=== PATIENT | female | born 1955 | race Caucasian/White ===

== ENCOUNTER 2017-12-03 02:04 | Day surgery (SDC) | payer MEDICARE, BC, OTHER ==
[~2017-12-03] VITALS: Ht 170.2 cm; Wt 90.5 kg
[~2017-12-03 02:04] MED LIST: ACET500; ACET500 PO; AMLO10 PO; AMLO5; AMYLIPPRO; AMYLIPPRO PO; ARIP10 PO; ASPI325 PO; ASPI81EC; ASPI81EC PO; ATOR10 PO; Antivert25 MG PO; Aspir 8181 MG PO; B Complete1 EACH PO; CALCAVITDA PO; CALMAGZIN; CEPH500 PO; CETI10; CHOL10002 PO; CHRO200 PO; CINNAMON PLUS1 EACH PO; CITA20 PO; CLEM1.34 PO; CLIN300 PO; CLON1 PO; CONEST1.25; CREON; CYAN100 PO; CYCL10 PO; Cleocin HCl150 MG PO; Cleocin HCl300 MG PO; DIAZ2 PO; Daily Multivit1 EAC2 PO; ERYT.5TO LEFTEYE; EZET10; EZET10-40 PO; FAMO20 PO; FENO145 PO; FENO67; FISH1000 PO; FLEC50 PO; FOLI1; FURO20 PO; FURO40 PO; Ferrous Sulfat324 MG PO; Flecainide Acet50 MG PO; GABA100 PO; GABA300 PO; GLUC500 PO; GLUCHON PO; GLUCOSAMINE &1 EACH PO; GLUCOSAMINE CH1 EAC3 PO; Ginkgo Biloba40 M1 PO; HEART MED; HYDACE10B PO; HYDACE5 PO; Heartburn Relie10 MG PO; Heartburn Relie20 MG PO; IBUHYD; Iron Supplemen325 MG PO; Keflex500 MG PO; L-THEANINE PO; LAMO100 PO; LAMO25 PO; LAMO50 PO; Lutein 15 MG S1 EACH PO; MAGGLU250 PO; MAGNESIUM PO; MAGOXI400 PO; MECL25; MECL25 PO; MELA3; MELA3 PO; MELATIN3 MG PO; MELATONIN PO; METF500 PO; MOTION-TIME25 MG PO; MULVIT; MULVITB&C PO; MULVITMIND PO; NABU750; NABU750 PO; NAPR375 PO; NAPR500 PO; Norco 5-325 Ta1 EACH PO; OLME20; OLME20 PO; OMEP20ER PO; ONDA4ODT MM; OXYACE5T PO; OXYC5 PO; Omeprazole20 M1 PO; PANT40; POLY17UD PO; PROC5 PO; PROP10 PO; PROP120ER PO; Percocet 5-3251 EACH PO; Prednisone20 MG PO; ROPI.25 PO; ROPI1 PO; RXHYDACE PO; RXSULTRIDS PO; SENN187 PO; SERT100; SIMV40 PO; SLEEP PO; SULTRIDS PO; Stool Softener250 MG PO; TRAM50 PO; TRAZ100; TRAZ100 PO; TRAZ150T57 PO; TRIHYD253A; TRIHYD253A PO; TRIHYD253B PO; Ultram50 MG PO; VALS80 PO; VENL150ER PO; VENL75ER PO; VITAMIN B12-FO1 EACH PO; VITAMIN D3 COM1 EACH PO; VYTORIN; XARELTO20 MG PO; ZOLP10 PO; Zithromax250 MG PO; Zofran8 MG PO; Zovirax800 MG PO; [UNRECOGNIZED DRUG - CODE] PO; [UNRECOGNIZED DRUG - CODE] PO; [UNRECOGNIZED DRUG - OTHER] PO; [UNRECOGNIZED DRUG - OTHER] PO
[2017-12-03 07:19] LABS: Anion Gap 9 mmol/L (6-16); Blood Urea Nitrogen 9 mg/dL (8-24); Bun/Creatinine Ratio 13.5 (12.0-20.0); CO2, Blood 26 mmol/L (21-32); Calcium, Blood 8.7 mg/dL (8.5-10.1); Chloride, Blood 101 mmol/L (98-108); Creatinine, Blood 0.67 mg/dL (0.40-1.00); Glomerular Filtration Rate >60 (60-); Glucose, Blood 139 mg/dL (70-99); Potassium, Blood 3.6 mmol/L (3.5-5.5); Sodium, Blood 136 mmol/L (136-145)
[2018-02-17] MEDS ORDERED: VENL150ER PO (19:35)
[2018-02-17] MEDS ORDERED: FURO40 PO (19:35)
[2018-02-17] MEDS ORDERED: Omeprazole20 M1 PO (19:36)
[2018-02-17] MEDS ORDERED: PROP120ER PO (19:36)
[2018-02-17] MEDS ORDERED: OLME20 PO (19:36)
[2018-02-17] MEDS ORDERED: ATOR10 PO (19:37)
[2018-02-17] MEDS ORDERED: Glucosamine Ch1 EAC4 PO (19:37)
[2018-02-17] MEDS ORDERED: METF500C PO (19:37)
[2018-02-17] MEDS ORDERED: Ginkgo Biloba40 M1 PO (19:38)
[2018-02-17] MEDS ORDERED: MECL12.5 PO (19:38)
[2018-02-17] MEDS ORDERED: FAMO20 PO (19:38)
[2018-02-17] MEDS ORDERED: CYCL10 PO (19:38)
[2018-02-17] MEDS ORDERED: ROPI.25 PO (19:39)
[2018-02-17] MEDS ORDERED: TRAM50 PO (19:39)
[2018-02-17] MEDS ORDERED: TRAZ150T57 PO (19:39)
[2018-02-17] MEDS ORDERED: GABA300 PO (19:39)
[2018-02-17] MEDS ORDERED: ELIQUIS5 MG PO (19:40)
[2018-02-18] MEDS ORDERED: Acetaminophen325 M1 PO (12:42)
== END 2017-12-03 11:50 | disposition home or self-care (01) ==
LOC: MHTC 02:04
PROVIDERS: Internal Medicine Cardiovascular Disease
PROC: B2111ZZ Fluoroscopy of Multiple Coronary Arteries using Low Osmolar Contrast (ICD-10-PCS; principal; 2017-12-03)
DX: T82.855A Stenosis of coronary artery stent, initial encounter (principal); I25.119 Atherosclerotic heart disease of native coronary artery with unspecified angina pectoris; E78.5 Hyperlipidemia, unspecified; I10 Essential (primary) hypertension; E11.9 Type 2 diabetes mellitus without complications; J44.9 Chronic obstructive pulmonary disease, unspecified; K29.60 Other gastritis without bleeding; D63.8 Anemia in other chronic diseases classified elsewhere; D50.9 Iron deficiency anemia, unspecified; Z98.0 Intestinal bypass and anastomosis status; Z87.891 Personal history of nicotine dependence; Z98.84 Bariatric surgery status; Z88.5 Allergy status to narcotic agent; Z88.2 Allergy status to sulfonamides; Z88.1 Allergy status to other antibiotic agents; Z79.899 Other long term (current) drug therapy; Z79.84 Long term (current) use of oral hypoglycemic drugs; Z79.82 Long term (current) use of aspirin
CPT/HCPCS: 80048; 82947; 93005; 93010; 93306; 93454; 99152; 99153; C1769; C1894; J1644; J2250; J3010; J7030; Q9967

== ENCOUNTER 2017-12-06 10:59 | Emergency (ER) | payer MEDICARE, BC, OTHER ==
[~2017-12-06] VITALS: Ht 170.2 cm; Wt 90.3 kg
[2017-12-06 12:07] LABS: BASOPHILS ABSOLUTE AUTO 0.02 K/mm3 (0.00-0.23); BASOPHILS PERCENT AUTO 0 % (0-2); EOSINOPHILS ABSOLUTE AUTO 0.17 K/mm3 (0.00-0.68); EOSINOPHILS PERCENT AUTO 3 % (0-6); Hematocrit 35.5 % (33.0-51.0); Hemoglobin 11.4 g/dL (11.5-16.0); IMMATURE GRAN ABSOLUTE AUTO 0.02 K/mm3 (0.00-0.10); IMMATURE GRAN PERCENT AUTO 0 % (0-1); LYMPHOCYTES ABSOLUTE AUTO 1.91 K/mm3 (0.84-5.20); LYMPHOCYTES PERCENT AUTO 32 % (21-46); MONOCYTES ABSOLUTE AUTO 0.78 K/mm3 (0.16-1.47); MONOCYTES PERCENT AUTO 13 % (4-13); Mean Corpuscular HGB 24.5 pg (26.0-34.0); Mean Corpuscular HGB Conc 32.1 g/dL (31.5-36.5); Mean Corpuscular Volume 76 fL (80-100); Mean Platelet Volume 10.2 fL (9.1-12.4); NEUTROPHILS ABSOLUTE AUTO 3.04 K/mm3 (1.96-9.15); NEUTROPHILS PERCENT AUTO 51 % (41-73); Platelet Count 293 K/mm3 (150-400); RDW Coefficient Variation 14.5 % (11.7-14.2); RDW Standard Deviation 39.8 fL (35.1-46.3); Red Blood Cell Count 4.65 M/mm3 (3.80-5.20); White Blood Cell Count 5.94 K/mm3 (4.00-11.30)
[2017-12-06 12:15] LABS: Troponin I <0.015 ng/mL (0.000-0.040)
[2017-12-06 12:17] LABS: Alanine Aminotransfer (ALT/SGP 36 U/L (12-78); Albumin, Blood 3.8 g/dL (3.4-5.0); Albumin/Globulin Ratio 1.2 (0.8-1.8); Alk Phos 68 U/L (50-136); Anion Gap 11 mmol/L (6-16); Aspartate Aminotrans (AST/SGOT 33 U/L (12-37); Bilirubin, Total 0.4 mg/dL (0.1-1.0); Blood Urea Nitrogen 12 mg/dL (8-24); CO2, Blood 24 mmol/L (21-32); Calcium, Blood 8.9 mg/dL (8.5-10.1); Chloride, Blood 97 mmol/L (98-108); Creatinine, Blood 0.86 mg/dL (0.40-1.00); Globulin, Blood 3.3 g/dL (2.2-4.0); Glomerular Filtration Rate >60 (60-); Glucose, Blood 160 mg/dL (70-99); Sodium, Blood 132 mmol/L (136-145); Total Protein, Blood 7.1 g/dL (6.4-8.2)
[2018-02-17] MEDS ORDERED: VENL150ER PO (19:35)
[2018-02-17] MEDS ORDERED: FURO40 PO (19:35)
[2018-02-17] MEDS ORDERED: OLME20 PO (19:36)
[2018-02-17] MEDS ORDERED: PROP120ER PO (19:36)
[2018-02-17] MEDS ORDERED: Omeprazole20 M1 PO (19:36)
[2018-02-17] MEDS ORDERED: ATOR10 PO (19:37)
[2018-02-17] MEDS ORDERED: METF500C PO (19:37)
[2018-02-17] MEDS ORDERED: Glucosamine Ch1 EAC4 PO (19:37)
[2018-02-17] MEDS ORDERED: FAMO20 PO (19:38)
[2018-02-17] MEDS ORDERED: Ginkgo Biloba40 M1 PO (19:38)
[2018-02-17] MEDS ORDERED: CYCL10 PO (19:38)
[2018-02-17] MEDS ORDERED: MECL12.5 PO (19:38)
[2018-02-17] MEDS ORDERED: GABA300 PO (19:39)
[2018-02-17] MEDS ORDERED: TRAZ150T57 PO (19:39)
[2018-02-17] MEDS ORDERED: ROPI.25 PO (19:39)
[2018-02-17] MEDS ORDERED: TRAM50 PO (19:39)
[2018-02-17] MEDS ORDERED: ELIQUIS5 MG PO (19:40)
[2018-02-18] MEDS ORDERED: Acetaminophen325 M1 PO (12:42)
== END 2017-12-06 13:25 | disposition short-term general hospital (02) ==
LOC: ER 10:59
PROVIDERS: Emergency Medicine
DX: I20.0 Unstable angina (principal); I10 Essential (primary) hypertension; I48.91 Unspecified atrial fibrillation; Z87.891 Personal history of nicotine dependence; Z88.0 Allergy status to penicillin; Z88.5 Allergy status to narcotic agent; Z88.1 Allergy status to other antibiotic agents; Z88.2 Allergy status to sulfonamides; Z79.899 Other long term (current) drug therapy; Z79.82 Long term (current) use of aspirin; Z79.84 Long term (current) use of oral hypoglycemic drugs; Z79.891 Long term (current) use of opiate analgesic
CPT/HCPCS: 36415; 80053; 84484; 85025; 93005; 93010; 99285

== ENCOUNTER → 2018-12-22 | Outpatient (CLI) | payer MEDICARE, BC, OTHER ==
[~2018-12-22] MED LIST changes: +ACETAMINOPHEN500 MG PO; +ALPHA LIPOIC AC50 MG PO; +Acetaminophen325 M1 PO; +Benicar40 MG PO; +CHLO4 PO; +Chromium Pico200 MCG PO; +Cinnamon500 MG PO; +Colace250 MG PO; +ELIQUIS5 MG PO; +FURO80 PO; +GABA600 PO; +Glucophage1000 MG PO; +Glucosamine &1 EACH PO; +Glucosamine Ch1 EAC4 PO; +Inderal 20 mg T20 MG PO; +Isosorbide Mono30 MG PO; +MECL12.5 PO; +METF500C PO; +MOTION RELIEF25 MG PO; +PANT40 PO; +Ropinirole HCl0.5 MG PO; +SUCR1 PO; +VITAMIN B122500 MCG PO
[2018-12-23 13:59] LABS: Adenovirus F 40/41 Not Detected (NOT DETECT); Astrovirus Not Detected (NOT DETECT); Campylobacter Sp Not Detected (NOT DETECT); Cryptosporidium Not Detected (NOT DETECT); Cyclospora Cayetanensis Not Detected (NOT DETECT); E. Coli O157 Not Detected (NOT DETECT); Entamoeba Histolytica Not Detected (NOT DETECT); Enteroaggregative E. coli-EAEC Not Detected (NOT DETECT); Enteropathogenic E. coli-EPEC Not Detected (NOT DETECT); Enterotoxigenic E. coli-ETEC Not Detected (NOT DETECT); Giardia Lamblia Not Detected (NOT DETECT); Norovirus GI/GII Not Detected (NOT DETECT); Plesiomonas Shigelloides Not Detected (NOT DETECT); Rotavirus A Not Detected (NOT DETECT); Salmonella Sp Not Detected (NOT DETECT); Sapovirus Not Detected (NOT DETECT); Shiga Toxin-prod E. coli-STEC Not Detected (NOT DETECT); Shigella/Enteroin E. coli-EIEC Not Detected (NOT DETECT); Vibrio Cholerae Not Detected (NOT DETECT); Vibrio Sp Not Detected (NOT DETECT); Yersinia Enterocolitica Not Detected (NOT DETECT)
== END | disposition home or self-care (01) ==
LOC: LAB EV 08:15
PROVIDERS: Internal Medicine Gastroenterology
DX: R10.9 Unspecified abdominal pain (principal); R19.7 Diarrhea, unspecified
CPT/HCPCS: 87507

== ENCOUNTER 2019-01-01 11:24 | Day surgery (SDC) | payer MEDICARE, BC, OTHER ==
[~2019-01-01] VITALS: Ht 167.6 cm; Wt 87.4 kg
== END 2019-01-01 13:26 | disposition home or self-care (01) ==
LOC: ORSCSDS 11:24
PROVIDERS: Internal Medicine Gastroenterology
PROC: 0DBH8ZX Excision of Cecum, Via Natural or Artificial Opening Endoscopic, Diagnostic (ICD-10-PCS; principal; 2019-01-01 12:45)
PROC: 0DBM8ZX Excision of Descending Colon, Via Natural or Artificial Opening Endoscopic, Diagnostic (ICD-10-PCS; principal; 2019-01-01 12:45)
PROC: 0DBE8ZX Excision of Large Intestine, Via Natural or Artificial Opening Endoscopic, Diagnostic (ICD-10-PCS; principal; 2019-01-01 12:45)
PROC: 0DBL8ZX Excision of Transverse Colon, Via Natural or Artificial Opening Endoscopic, Diagnostic (ICD-10-PCS; principal; 2019-01-01 12:45)
PROC: 0DB68ZX Excision of Stomach, Via Natural or Artificial Opening Endoscopic, Diagnostic (ICD-10-PCS; principal; 2019-01-01 12:45)
DX: R19.7 Diarrhea, unspecified (principal); R10.9 Unspecified abdominal pain; D12.4 Benign neoplasm of descending colon; D12.0 Benign neoplasm of cecum; D12.3 Benign neoplasm of transverse colon; K29.70 Gastritis, unspecified, without bleeding; I10 Essential (primary) hypertension; E11.9 Type 2 diabetes mellitus without complications; Z87.891 Personal history of nicotine dependence; Z79.899 Other long term (current) drug therapy; Z79.82 Long term (current) use of aspirin
CPT/HCPCS: 82947; 88305; 88342; J7120

== ENCOUNTER 2019-07-28 13:23 | Emergency (ER) | payer MEDICARE, BC, OTHER ==
[~2019-07-28] VITALS: Ht 160 cm; Wt 90.7 kg
[2019-07-28 14:09] LABS: BASOPHILS ABSOLUTE AUTO 0.01 K/mm3 (0.00-0.23); BASOPHILS PERCENT AUTO 0 % (0-2); EOSINOPHILS ABSOLUTE AUTO 0.13 K/mm3 (0.00-0.68); EOSINOPHILS PERCENT AUTO 2 % (0-6); Hematocrit 39.9 % (33.0-51.0); Hemoglobin 12.5 g/dL (11.5-16.0); IMMATURE GRAN ABSOLUTE AUTO 0.02 K/mm3 (0.00-0.10); IMMATURE GRAN PERCENT AUTO 0 % (0-1); LYMPHOCYTES ABSOLUTE AUTO 1.57 K/mm3 (0.84-5.20); LYMPHOCYTES PERCENT AUTO 24 % (21-46); MONOCYTES ABSOLUTE AUTO 0.55 K/mm3 (0.16-1.47); MONOCYTES PERCENT AUTO 8 % (4-13); Mean Corpuscular HGB 25.2 pg (26.0-34.0); Mean Corpuscular HGB Conc 31.3 g/dL (31.5-36.5); Mean Corpuscular Volume 80 fL (80-100); Mean Platelet Volume 10.1 fL (9.1-12.4); NEUTROPHILS ABSOLUTE AUTO 4.41 K/mm3 (1.96-9.15); NEUTROPHILS PERCENT AUTO 66 % (41-73); Platelet Count 282 K/mm3 (150-400); RDW Coefficient Variation 14.3 % (11.7-14.2); RDW Standard Deviation 41.1 fL (35.1-46.3); Red Blood Cell Count 4.96 M/mm3 (3.80-5.20); White Blood Cell Count 6.69 K/mm3 (4.00-11.30)
[2019-07-28 14:40] LABS: Alanine Aminotransfer (ALT/SGP 48 U/L (12-78); Albumin/Globulin Ratio 1.1 (0.8-1.8); Alk Phos 59 U/L (50-136); Anion Gap 10 mmol/L (6-16); Aspartate Aminotrans (AST/SGOT 54 U/L (12-37); Bilirubin, Total 0.5 mg/dL (0.1-1.0); Blood Urea Nitrogen 7 mg/dL (8-24); Bun/Creatinine Ratio 12.1 (12.0-20.0); CO2, Blood 23 mmol/L (21-32); Chloride, Blood 99 mmol/L (98-108); Creatinine, Blood 0.58 mg/dL (0.40-1.00); Globulin, Blood 3.7 g/dL (2.2-4.0); Glomerular Filtration Rate >60 (60-); Glucose, Blood 275 mg/dL (70-99); Potassium, Blood 3.2 mmol/L (3.5-5.5); Sodium, Blood 132 mmol/L (136-145); Total Protein, Blood 7.7 g/dL (6.4-8.2); Troponin I <0.015 ng/mL (0.000-0.040)
[2019-07-28] MEDS ORDERED: TRAM50 PO (18:30)
[2019-07-28] MEDS ORDERED: Aspir 8181 MG PO (18:31)
[2019-07-28] MEDS ORDERED: ASCO500 PO (18:33)
[2019-07-28] MEDS ORDERED: Pepcid20 MG PO (18:55)
== END 2019-07-28 19:06 | disposition home or self-care (01) ==
LOC: ER 13:23
PROVIDERS: Physician Assistant
DX: R07.9 Chest pain, unspecified (principal); I25.10 Atherosclerotic heart disease of native coronary artery without angina pectoris; I10 Essential (primary) hypertension; I48.91 Unspecified atrial fibrillation; Z88.2 Allergy status to sulfonamides; Z88.1 Allergy status to other antibiotic agents; Z88.0 Allergy status to penicillin; Z88.5 Allergy status to narcotic agent; Z88.8 Allergy status to other drugs, medicaments and biological substances; Z79.899 Other long term (current) drug therapy; Z79.82 Long term (current) use of aspirin; Z79.84 Long term (current) use of oral hypoglycemic drugs; Z87.891 Personal history of nicotine dependence
CPT/HCPCS: 36415; 71046; 80053; 84484; 85025; 93005; 93010; 99285-25

== ENCOUNTER → 2019-09-07 | Outpatient (CLI) | payer MEDICARE, BC, OTHER ==
[~2019-09-07] MED LIST changes: +ASCO500 PO; +Pepcid20 MG PO
[2019-09-10 14:23] LABS: Stool Occult Bld Immuno 1 Positive (NEGATIVE)
== END | disposition home or self-care (01) ==
LOC: LAB EV 13:00
PROVIDERS: Nurse Practitioner Family
DX: R10.30 Lower abdominal pain, unspecified (principal); I10 Essential (primary) hypertension
CPT/HCPCS: 82274

== ENCOUNTER 2019-10-10 10:33 | Day surgery (SDC) | payer MEDICARE, BC, OTHER ==
[~2019-10-10] VITALS: Ht 167.6 cm; Wt 88.9 kg
[~2019-10-10 10:33] MED LIST changes: +ATOR20 PO; +Isosorbide Mono60 MG PO; +LOSA50 PO; +POTCHL10ER PO
== END 2019-10-10 13:27 | disposition home or self-care (01) ==
LOC: ORSCSDS 10:33
PROVIDERS: Internal Medicine Gastroenterology
PROC: 0DB88ZX Excision of Small Intestine, Via Natural or Artificial Opening Endoscopic, Diagnostic (ICD-10-PCS; principal; 2019-10-10 12:45)
DX: R10.13 Epigastric pain (principal); K29.70 Gastritis, unspecified, without bleeding; K21.9 Gastro-esophageal reflux disease without esophagitis; K92.1 Melena; I10 Essential (primary) hypertension; E11.9 Type 2 diabetes mellitus without complications; I48.91 Unspecified atrial fibrillation; Z79.01 Long term (current) use of anticoagulants; Z85.09 Personal history of malignant neoplasm of other digestive organs; Z87.891 Personal history of nicotine dependence; Z79.899 Other long term (current) drug therapy; Z79.84 Long term (current) use of oral hypoglycemic drugs
CPT/HCPCS: 82947; 88305; J2704; J7120

== ENCOUNTER 2020-03-04 12:54 | Emergency (ER) | payer MEDICARE, BC, OTHER ==
[~2020-03-04] VITALS: Ht 167.6 cm; Wt 88.5 kg
[2020-03-04 13:56] LABS: BASOPHILS ABSOLUTE AUTO 0.01 K/mm3 (0.00-0.23); BASOPHILS PERCENT AUTO 0 % (0-2); EOSINOPHILS ABSOLUTE AUTO 0.07 K/mm3 (0.00-0.68); EOSINOPHILS PERCENT AUTO 1 % (0-6); Hematocrit 38.7 % (33.0-51.0); Hemoglobin 11.3 g/dL (11.5-16.0); IMMATURE GRAN ABSOLUTE AUTO 0.03 K/mm3 (0.00-0.10); IMMATURE GRAN PERCENT AUTO 0 % (0-1); LYMPHOCYTES ABSOLUTE AUTO 1.29 K/mm3 (0.84-5.20); LYMPHOCYTES PERCENT AUTO 17 % (21-46); MONOCYTES ABSOLUTE AUTO 0.57 K/mm3 (0.16-1.47); MONOCYTES PERCENT AUTO 8 % (4-13); Mean Corpuscular HGB 21.8 pg (26.0-34.0); Mean Corpuscular HGB Conc 29.2 g/dL (31.5-36.5); Mean Corpuscular Volume 75 fL (80-100); Mean Platelet Volume 10.2 fL (9.1-12.4); NEUTROPHILS ABSOLUTE AUTO 5.65 K/mm3 (1.96-9.15); NEUTROPHILS PERCENT AUTO 74 % (41-73); NRBC ABSOLUTE 0.03 K/mm3 (0.00-0.02); NRBC Auto 0.4 /100 WBC (0.0-0.2); Platelet Count 307 K/mm3 (150-400); RDW Coefficient Variation 15.6 % (11.7-14.2); RDW Standard Deviation 41.9 fL (35.1-46.3); Red Blood Cell Count 5.18 M/mm3 (3.80-5.20); White Blood Cell Count 7.62 K/mm3 (4.00-11.30)
[2020-03-04 14:22] LABS: Alanine Aminotransfer (ALT/SGP 32 U/L (12-78); Albumin/Globulin Ratio 1.1 (0.8-1.8); Alk Phos 58 U/L (50-136); Anion Gap 9 mmol/L (6-16); Aspartate Aminotrans (AST/SGOT 33 U/L (12-37); Bilirubin, Total 0.4 mg/dL (0.1-1.0); Blood Urea Nitrogen 8 mg/dL (8-24); Bun/Creatinine Ratio 12.8 (12.0-20.0); CO2, Blood 26 mmol/L (21-32); Chloride, Blood 101 mmol/L (98-108); Creatinine, Blood 0.63 mg/dL (0.40-1.00); Globulin, Blood 3.7 g/dL (2.2-4.0); Glomerular Filtration Rate >60 (60-); Glucose, Blood 205 mg/dL (70-99); Sodium, Blood 136 mmol/L (136-145); Total Protein, Blood 7.7 g/dL (6.4-8.2); Troponin I <0.015 ng/mL (0.000-0.040)
== END 2020-03-04 14:55 | disposition home or self-care (01) ==
LOC: ER 12:54
PROVIDERS: Physician Assistant
DX: S00.03XA Contusion of scalp, initial encounter (principal); I10 Essential (primary) hypertension; I48.91 Unspecified atrial fibrillation; E11.9 Type 2 diabetes mellitus without complications; Z88.2 Allergy status to sulfonamides; Z88.1 Allergy status to other antibiotic agents; Z88.0 Allergy status to penicillin; Z88.5 Allergy status to narcotic agent; Z88.8 Allergy status to other drugs, medicaments and biological substances; Z79.899 Other long term (current) drug therapy; Z79.84 Long term (current) use of oral hypoglycemic drugs; Z79.82 Long term (current) use of aspirin; Z87.891 Personal history of nicotine dependence; W22.8XXA Striking against or struck by other objects, initial encounter
CPT/HCPCS: 36415; 70450; 72125; 80053; 84484; 85025; 93005; 93010; 99284-25; L0160

== ENCOUNTER → 2020-03-29 | Outpatient (CLI) | payer MEDICARE, BC, OTHER ==
[2020-03-29 09:57] LABS: BASOPHILS ABSOLUTE AUTO 0.01 K/mm3 (0.00-0.23); BASOPHILS PERCENT AUTO 0 % (0-2); EOSINOPHILS ABSOLUTE AUTO 0.07 K/mm3 (0.00-0.68); EOSINOPHILS PERCENT AUTO 2 % (0-6); Hematocrit 33.6 % (33.0-51.0); Hemoglobin 10.3 g/dL (11.5-16.0); IMMATURE GRAN ABSOLUTE AUTO 0.01 K/mm3 (0.00-0.10); IMMATURE GRAN PERCENT AUTO 0 % (0-1); LYMPHOCYTES ABSOLUTE AUTO 1.19 K/mm3 (0.84-5.20); LYMPHOCYTES PERCENT AUTO 26 % (21-46); MONOCYTES ABSOLUTE AUTO 0.34 K/mm3 (0.16-1.47); MONOCYTES PERCENT AUTO 7 % (4-13); Mean Corpuscular HGB 22.3 pg (26.0-34.0); Mean Corpuscular HGB Conc 30.7 g/dL (31.5-36.5); Mean Corpuscular Volume 73 fL (80-100); Mean Platelet Volume 9.8 fL (9.1-12.4); NEUTROPHILS ABSOLUTE AUTO 3.04 K/mm3 (1.96-9.15); NEUTROPHILS PERCENT AUTO 65 % (41-73); Platelet Count 256 K/mm3 (150-400); RDW Coefficient Variation 16.7 % (11.7-14.2); RDW Standard Deviation 43.2 fL (35.1-46.3); Red Blood Cell Count 4.61 M/mm3 (3.80-5.20); White Blood Cell Count 4.66 K/mm3 (4.00-11.30)
[2020-03-29 10:09] LABS: Alanine Aminotransfer (ALT/SGP 30 U/L (12-78); Albumin, Blood 3.9 g/dL (3.4-5.0); Albumin/Globulin Ratio 1.3 (0.8-1.8); Alk Phos 60 U/L (40-126); Anion Gap 11 mmol/L (6-16); Aspartate Aminotrans (AST/SGOT 30 U/L (12-37); Bilirubin, Total 0.4 mg/dL (0.1-1.0); Blood Urea Nitrogen 10 mg/dL (8-24); CO2, Blood 29 mmol/L (21-32); Calcium, Blood 8.9 mg/dL (8.5-10.1); Chloride, Blood 101 mmol/L (98-108); Creatinine, Blood 0.83 mg/dL (0.40-1.00); Globulin, Blood 3.1 g/dL (2.2-4.0); Glomerular Filtration Rate >60 (60-); Glucose, Blood 157 mg/dL (70-99); Potassium, Blood 4.2 mmol/L (3.5-5.5); Sodium, Blood 141 mmol/L (136-145)
[2020-03-29 10:10] LABS: Troponin I <0.017 ng/mL (0.000-0.040)
== END ==
LOC: LAB EV 09:52 → LAB SHORT 09:52
PROVIDERS: Family Medicine
DX: R07.9 Chest pain, unspecified (principal)
CPT/HCPCS: 80053; 84484; 85025; 85379

== ENCOUNTER → 2020-09-20 | Outpatient (CLI) | payer MEDICARE, BC, OTHER ==
[2020-09-22 11:16] LABS: Stool Occult Bld Immuno 1 Negative (NEGATIVE)
== END | disposition home or self-care (01) ==
LOC: LAB SHORT 14:20 → LAB 14:20
PROVIDERS: Internal Medicine
DX: D50.9 Iron deficiency anemia, unspecified (principal)
CPT/HCPCS: 82274

== ENCOUNTER → 2021-06-03 | Outpatient (CLI) | payer MEDICARE, BC, OTHER ==
[2021-06-03 11:03] LABS: BASOPHILS ABSOLUTE AUTO 0.02 K/mm3 (0.00-0.23); BASOPHILS PERCENT AUTO 0 % (0-2); EOSINOPHILS ABSOLUTE AUTO 0.13 K/mm3 (0.00-0.68); EOSINOPHILS PERCENT AUTO 2 % (0-6); Hematocrit 40.2 % (33.0-51.0); Hemoglobin 13.6 g/dL (11.5-16.0); IMMATURE GRAN ABSOLUTE AUTO 0.01 K/mm3 (0.00-0.10); IMMATURE GRAN PERCENT AUTO 0 % (0-1); LYMPHOCYTES ABSOLUTE AUTO 1.86 K/mm3 (0.84-5.20); LYMPHOCYTES PERCENT AUTO 33 % (21-46); MONOCYTES ABSOLUTE AUTO 0.53 K/mm3 (0.16-1.47); MONOCYTES PERCENT AUTO 9 % (4-13); Mean Corpuscular HGB 28.6 pg (26.0-34.0); Mean Corpuscular HGB Conc 33.8 g/dL (31.5-36.5); Mean Corpuscular Volume 85 fL (80-100); Mean Platelet Volume 9.7 fL (9.1-12.4); NEUTROPHILS ABSOLUTE AUTO 3.12 K/mm3 (1.96-9.15); NEUTROPHILS PERCENT AUTO 55 % (41-73); Platelet Count 263 K/mm3 (150-400); RDW Coefficient Variation 12.9 % (11.7-14.2); RDW Standard Deviation 39.8 fL (35.1-46.3); Red Blood Cell Count 4.75 M/mm3 (3.80-5.20); White Blood Cell Count 5.67 K/mm3 (4.00-11.30)
[2021-06-03 11:49] LABS: Alanine Aminotransfer (ALT/SGP 42 U/L (12-78); Albumin, Blood 3.9 g/dL (3.4-5.0); Albumin/Globulin Ratio 1.1 (0.8-1.8); Alk Phos 44 U/L (50-136); Anion Gap 6 mmol/L (6-16); Aspartate Aminotrans (AST/SGOT 34 U/L (12-37); Bilirubin, Total 0.8 mg/dL (0.1-1.0); Blood Urea Nitrogen 7 mg/dL (8-24); Bun/Creatinine Ratio 11.3 (12.0-20.0); CO2, Blood 29 mmol/L (21-32); Calcium, Blood 9.4 mg/dL (8.5-10.1); Chloride, Blood 98 mmol/L (98-108); Creatinine, Blood 0.62 mg/dL (0.40-1.00); Globulin, Blood 3.7 g/dL (2.2-4.0); Glomerular Filtration Rate >60 (60-); Glucose, Blood 128 mg/dL (70-99); Potassium, Blood 4.3 mmol/L (3.5-5.5); Sodium, Blood 133 mmol/L (136-145); Total Protein, Blood 7.6 g/dL (6.4-8.2)
== END | disposition home or self-care (01) ==
LOC: LAB 10:58 → LAB SHORT 10:58
PROVIDERS: Physician Assistant
DX: R53.83 Other fatigue (principal); Z91.89 Other specified personal risk factors, not elsewhere classified
CPT/HCPCS: 80053; 84443; 85025

== ENCOUNTER 2022-03-10 10:22 | Inpatient (IN) | payer MEDICARE, BC, OTHER ==
[~2022-03-10] VITALS: Ht 167.6 cm; Wt 87.2 kg
[~2022-03-10 10:22] MED LIST changes: -Glucophage1000 MG PO
[2022-03-10 11:23] LABS: Source, Urine Clean Catch
[2022-03-10 11:25] LABS: BASOPHILS ABSOLUTE AUTO 0.03 K/mm3 (0.00-0.23); BASOPHILS PERCENT AUTO 0 % (0-2); EOSINOPHILS ABSOLUTE AUTO 0.17 K/mm3 (0.00-0.68); EOSINOPHILS PERCENT AUTO 2 % (0-6); Hematocrit 40.4 % (33.0-51.0); Hemoglobin 13.6 g/dL (11.5-16.0); IMMATURE GRAN ABSOLUTE AUTO 0.02 K/mm3 (0.00-0.10); IMMATURE GRAN PERCENT AUTO 0 % (0-1); LYMPHOCYTES ABSOLUTE AUTO 1.34 K/mm3 (0.84-5.20); LYMPHOCYTES PERCENT AUTO 18 % (21-46); MONOCYTES ABSOLUTE AUTO 0.48 K/mm3 (0.16-1.47); MONOCYTES PERCENT AUTO 7 % (4-13); Mean Corpuscular HGB 29.1 pg (26.0-34.0); Mean Corpuscular HGB Conc 33.7 g/dL (31.5-36.5); Mean Corpuscular Volume 87 fL (80-100); Mean Platelet Volume 10.1 fL (9.1-12.4); NEUTROPHILS ABSOLUTE AUTO 5.26 K/mm3 (1.96-9.15); NEUTROPHILS PERCENT AUTO 72 % (41-73); Platelet Count 280 K/mm3 (150-400); RDW Coefficient Variation 12.3 % (11.7-14.2); RDW Standard Deviation 38.8 fL (35.1-46.3); Red Blood Cell Count 4.67 M/mm3 (3.80-5.20)
[2022-03-10 11:47] LABS: Albumin, Blood 3.7 g/dL (3.4-5.0); Albumin/Globulin Ratio 1.1 (0.8-1.8); Bilirubin, Total 0.6 mg/dL (0.1-1.0); Bun/Creatinine Ratio 11.8 (12.0-20.0); Calcium, Blood 9.5 mg/dL (8.5-10.1); Creatinine, Blood 0.68 mg/dL (0.40-1.00); Globulin, Blood 3.5 g/dL (2.2-4.0); Potassium, Blood 3.8 mmol/L (3.5-5.5); Total Protein, Blood 7.2 g/dL (6.4-8.2)
[2022-03-10 11:48] LABS: Appearance, Urine Clear (Clear); Bilirubin, Urine Neg (Neg); Blood, Urine 1+ (Neg); Color, Urine Yellow (P-Yellow); Glucose Qualitative, Urine Neg (Neg); Ketones, Urine Neg (Neg); Leukocyte Esterase, Urine 1+ (Neg); Nitrite, Urine Neg (Neg); Protein, Urine Neg (Neg); Specific Gravity, Urine 1.015 (1.003-1.022); Urobilinogen, Urine NORM (Normal)
[2022-03-10 12:02] LABS: Red Blood Cells, Urine 0-2 /hpf (0-2); Squamous Epithelial Cells Few /hpf (Few)
[2022-03-10 12:03] LABS: Bacteria Rare /hpf
[2022-03-10 12:04] LABS: Hyaline Casts 0-2 /lpf (0-2)
--- NOTE | 2022-03-10 21:32 | NUR ---
WITH ASSESSMENT C/O CHEST PRESSURE.WHEN QUESTIONED, PT REPORTS SHE "ALWAYS" HAS SOME LEVEL OF CP AND HAS HAD SINCE MULTI VESSEL ARTERY BYPASS GRADTING IN 2018. STATES CHEST PRESSURE HAS ACTUALLY WORSENED SINCE HER HEART SURGARY AND AT THIS TIME IS INCREASING BEYOND WHAT SHE CONSIDERS HER BASELINE.PT REPORTS ALLERGY TO NITRO AND DOES NOT TAKE AT HOME.PT VERB SHE HAS REPORTED THIS TO HER CARDIOLOGISTS AND PCP.PT REPORTS SHE HAS HX OF AFIB WITH THE ONLY BLOOD THINNER SHE TAKES BABY ASA.HOWEVER, PT HOME MED LIST NOTES PT ON XARELTO. WHEN ASKED FOR CONFIRMATION ON HER MEDS, PT IS UNABLE TO CONFIRM AND STATES HER FAMILY WILL NOT BE AVAILABLE UNTIL AM TO BRING IN HER MEDS. PT USES [facility] AND IF THEY ARE OPEN ON SUNDAY, WE WILL ALSO BE REQUESTING A LIST FORM THEM. PT AGREES TO THIS.PT HAS COZAAR WHICH IS ORDERED PER ADMIT AND INDERAL ALSO ORDERED PER ADMIT.PT IS NOTED BRADYCARDIC PT HYPERTENSIVE. PT UNCLEAR IF HX CHF ALTHOUGH [facility] NOTED ON HOME MED LIST. I CALLED DR CHINCHILLA AND ADVISED OF C/O CHEST PRESSURE WITH STATEMENT OF ALWAYS AT HOME, BUT WORSE AT PRESENT DISCUSSED MEDS PER HOME LIST AND MEDS ORDERED PER ADMIT.DISCUSSED CURRENT VS.COZAAR WAS OKD TO GIVE-INDERAL ON HOLD.DR CHINCHILLA ORDERED TROP,EKG,TELE.
--- NOTE | 2022-03-10 22:35 | NUR ---
EKG WAS COMPLETE AT 2213.SINUS REBA WITH RBBB PER AUTO READ,TELE WAS PLACED AT THIS TIME AFTER EKG SINUS REBA.PT REPORTED WHILE EKG WAS BEING DONE, SHE HAD A BRIEF, SHARP, SHOOTING PAIN TRAVEL TO HER L JAW.TROP CAME BACK CRITICAL HIGH AT 168.I NOTIFIED DR CHINCHILLA OF TROP AND OF BRIEF PAIN TO JAW,DISCUSSED EKGF RESULT.HEPARIN GTT ORDERS BEING ORDERED AND REPEAT TROP 2 HR POST FIRST TROP DRAW.
[2022-03-10 23:42] LABS: Anti-Xa UFH, PHA Monitoring <0.10 IU/mL; Prothrombin Time Results 10.5 Sec (9.7-11.5)
--- NOTE | 2022-03-11 01:27 | NUR ---
HEPARIN GTT STARTED AT 0025 PER PHARM MANAGEMENT ORDERS.WITH COMFIRMATION PER Khadijah GILLIS RN.SECOND TROP ALSO CRITICAL AND SLIGHTLY HIGHER @[address] MASON.DISCUSSED CURRENT HEPARIN ORDERS.PT REPORTING CHEST PRESSURE EASING BACK TO WHAT SHE CONSIDERS HER MILD BASELINE.PT HAS BEEN MADE AWARE OF LABS AND WHY HEPARIN GTT WITH CARDIAC CONCERNS.PT ASKING ABOUT SURGERY TOMORROW? DISCUSSED CARDIAC RISKS TAKING PRECEDENT AT THIS TIME,DOES NOT APPEAR ANY PROCEDURE WILL OCCUR REGARDLESS FIRST AM IF ANY TOMORROW DUE TO NEED FOR HEP GTT AND CARDIAC CONCERNS. HOWEVER,PLAN FOR PT TO BE SEEN FOR SURG CX STILL TO DETERMINE PLAN OF ACTION REGARDING ABD WALL ABSCESS.
[2022-03-11 06:33] LABS: BASOPHILS ABSOLUTE AUTO 0.02 K/mm3 (0.00-0.23); BASOPHILS PERCENT AUTO 0 % (0-2); EOSINOPHILS ABSOLUTE AUTO 0.18 K/mm3 (0.00-0.68); EOSINOPHILS PERCENT AUTO 3 % (0-6); Hematocrit 34.5 % (33.0-51.0); Hemoglobin 11.8 g/dL (11.5-16.0); IMMATURE GRAN ABSOLUTE AUTO 0.02 K/mm3 (0.00-0.10); IMMATURE GRAN PERCENT AUTO 0 % (0-1); LYMPHOCYTES ABSOLUTE AUTO 1.39 K/mm3 (0.84-5.20); LYMPHOCYTES PERCENT AUTO 22 % (21-46); MONOCYTES ABSOLUTE AUTO 0.46 K/mm3 (0.16-1.47); MONOCYTES PERCENT AUTO 7 % (4-13); Mean Corpuscular HGB 28.9 pg (26.0-34.0); Mean Corpuscular HGB Conc 34.2 g/dL (31.5-36.5); Mean Corpuscular Volume 85 fL (80-100); Mean Platelet Volume 9.7 fL (9.1-12.4); NEUTROPHILS ABSOLUTE AUTO 4.13 K/mm3 (1.96-9.15); NEUTROPHILS PERCENT AUTO 67 % (41-73); Platelet Count 221 K/mm3 (150-400); RDW Coefficient Variation 11.9 % (11.7-14.2); RDW Standard Deviation 36.2 fL (35.1-46.3); Red Blood Cell Count 4.08 M/mm3 (3.80-5.20)
[2022-03-11 06:51] LABS: Bilirubin, Total 0.6 mg/dL (0.1-1.0); Calcium, Blood 8.4 mg/dL (8.5-10.1); Creatinine, Blood 0.61 mg/dL (0.40-1.00); Globulin, Blood 2.9 g/dL (2.2-4.0); Potassium, Blood 3.7 mmol/L (3.5-5.5); Total Protein, Blood 5.9 g/dL (6.4-8.2)
--- NOTE | 2022-03-11 07:44 | NUR ---
SUMMARY PT HAVING MILD UPPER LIP SWELLING AND INTITIALLY STATED IT WAS RELATED TO HER CHAPPED LIPS, NOW WITH FURTHER DISCUSSION ADMITS TO FEELING IT SWELLING.I CALLED DR CABA,AND HE DIRECTED ME TO CALL DR WASHBURN. CALLED OUT TO DR WASHBURN. ORDERS RECEIVED.
--- NOTE | 2022-03-11 08:09 | NUR ---
CX CALLED TO DR ROMERO,CALL OUT TO DR PARHAM TO NOTIFY OF N STEMI.
--- NOTE | 2022-03-11 08:11 | NUR ---
DR PARHAM RETURNED CALL AND WAS ADVISED OF N STEMI
[2022-03-11 10:25] LABS: SARS-Cov-2 (COVID-19) PCR, MMC NEGATIVE (NEGATIVE)
--- NOTE | 2022-03-11 10:44 | NUR ---
HEPARIN STOPPED AT [address] DR WASHBURN AWARE.
--- NOTE | 2022-03-11 11:00 | NUR ---
HEPARIN RESTARTED PER DR ROMERO, PT NOT GOING TO O.R. FOR ABD SURGERY TODAY WITH DR PARHAM, BUT WILL HAVE STRESS TEST 03/12/22 AT 0800.
[2022-03-11] MEDS ORDERED: IRON18 MG PO (16:49)
--- NOTE | 2022-03-11 16:55 | NUR ---
SHIFT SUMMARY PT A&OX3/FORGETFUL, CBGS CNI, VSS/RA, GUY PO, VOIDING WELL, AMB INDEPENDENTLY TO BRP, UP TO CHAIR FOR MEALS. PLAN FOR NPO MIDNIGHT/WATER OK FOR STRESS TEST IN AM. DAUGHTER AT BEDSIDE. WILL REPORT TO ONCOMING NOC RN.
--- NOTE | 2022-03-12 03:10 | NUR ---
PT WITH H/A REPORTED CHRONIC.HOWEVER, AT THIS TIME PT REPORTS CURRENT HEADACHE FEELS "DIFFERENT" PT STATES H/A FEELS MORE FRONTAL THAN USUAL.WHEN I QUESTION FURTHER, PT REPORTS R FACIAL "NUMBNESS.ALSO REPORTS R EYE FIELD OF VISION GETTING SMALLER.KRISTA.PT HAS HAD UPPER LIP SWELLING SINCE THIS AM WHICH HAS BEEN REPORTED TO DOCTORS. PT HAS BEEN RECIEVING BENADRYL.HOWEVER, BENADRYL HAS NOT APPEARED TO DECREASE SWELLING TO LIP.R SIDE LIP APPEARS STONE THAN L. PT IS ABLE TO SMILE FULLY AND EQUALLY WITHOUT DROOP.KEEN.MOLDER FITTING STRONG AND EQUAL.NO DRIFT NOTED.FEET DORSI AND PLANTAR FLEX, BUT APPEAR SLIGHTLY WEAK.NO C/O CP OR SOB AT THIS TIME.NO CHANGES TO TELE.SINUS REBA 61 BP 158/72.I CALLED OUT TO DR MASON AND RECIEVED ORDER FOR CT SCAN OF HEAD.NURSING ALLERGY SPECIALIST AWARE.
--- NOTE | 2022-03-12 03:47 | NUR ---
ADVISED PT OF PENDING CT SCAN.NO CHANGES REPORTED. PT RESTING IN BED.ALERT.
--- NOTE | 2022-03-12 04:30 | NUR ---
PT SBA FOR BSC.APPEARS WEAK.PT NOW REPORTING HAVING SOME DIFFICULTY EXPRESSING WORDS.PT IS ABLE TO CONVERSE AND CARRY CONVERSATION WITH NURSE.CBG CHECKED FOR SAFETY 126.PT TO IMAGING FOR HEAD CT PER BLADE WITH PCU NURSE IN ATTENDANCE.
--- NOTE | 2022-03-12 04:49 | NUR ---
PT RETURNED FROM IMAGING.C/O "JUMPY LEGS"PT REPORTS THIS IS BASELINE FOR HER. PENDING IMAGING RESULTS
--- NOTE | 2022-03-12 05:52 | NUR ---
SUMMARY CT RESULTS REPORT NO ACUTE CHANGES.
--- NOTE | 2022-03-12 07:30 | NUR ---
SWELLING TO UPPER LIP CONTINUES OF UNKNOWN ORIGIN.BENADRYL DOES NOT APPEAR TO BE EFFECTIVE.DAY RN AGREES TO FOLLOW UP AGAIN WITH DR RAMOS TODAY.
[2022-03-12 08:49] LABS: Vancomycin, Trough 14.1 ug/mL (5.0-10.0)
--- NOTE | 2022-03-12 15:49 | NUR ---
SHIFT SUMMARY PT A&OX4/FORGETFUL, PLEASANT & COOPERATIVE WITH CARE. VSS/RA; TELE NSR 66 BPM; CBGS CNI. GUY PO, VOIDING WELL, 2 BMS TODAY. AMB INDEPENDENTLY TO BRP/BED. PAIN MANAGED WITH ULTRAM 50 MG. HEP DRIP PER PHARMACY, ABX THERAPY PER EMAR; 2 IVS. PERIORAL SWELLING IMPROVING WITH ADDITION OF TOPICAL MUPIROCIN, PT DENIES AND DOES NOT APPEAR TO HAVE DIFFICULTY SWALLOWING/TONGUE SWELLING. STRESS TEST COMPLETED TODAY, PT DENIES SOB/CP/PRESSURE. WILL REPORT TO ONCOMING NOC RN.
--- NOTE | 2022-03-12 18:09 | NUR ---
TELEPHONE CALL WITH DR WASHBURN R/T HEPARIN DC; WILL NOT BE REPLACING ANTICOAGULANT UNTIL AFTER PLANNED ABD I&D TOMORROW.
--- NOTE | 2022-03-13 07:21 | NUR ---
PT HAD UNEVENTFUL NIGHT; VSS; HR SINUS 80'S PER VANE MONITOR. PAIN MGD PER EMAR W/REP RELIEF. PT HAS BEEN NPO POST MIDNIGHT, HAS DENIED N/V, REP +FLATUS AND BM. PT AMB INDEP IN ROOM/HALLS, GUY WELL. AWAITING PLAN FOR SURGERY TODAY. BEDSIDE REPORT GIVEN TO Hernan AVELAR RN.
--- NOTE | 2022-03-13 13:17 | NUR ---
03/13/22 1317 Cyndi Holt PATIENT RECEIVED 1GM OF VANCO PRIOR TO ARRIVING IN OR.
--- NOTE | 2022-03-13 16:12 | NUR ---
PATIENT REASSESSMENT: PT WAS MAYCO BACK FROM THE PACU AROUND 1310. PT WAS ABLE TO INDEPENDENTLY TRANSFER TO THE BED BY WALKING. LUNG SOUNDS WERE CLEAR, EQUAL RISE AND FALL OF CHEST NOTED. C/O MINIMAL PAIN TO THE ABD REGION. PT PAIN HAS BEEN WELL MANAGED WITH ORDERS PER EMAR. SHE WAS BROUGHT MORE PO FLUIDS AND REPOSITIONED ON THE BED. EQUAL CHEST RISE AND FALL NOTED. PT RELAXED AND ATTEMPTING TO REST. BILATERAL COMPRESSION WAS PLACED ON THE PT'S LOWER EXTREMITIES. WILL CONTINUE TO REASSESS THE PT THE SHIFT CONTINUES.
--- NOTE | 2022-03-13 18:05 | NUR ---
SHIFT SUMMARY: PT WAS TAKEN TO THE OR FOR AN I&D TODAY. THE PT HAS BEEN EATING, DRINKING, AND VOIDING WELL. MALIA DRAIN W/ GAUZE AND ADHESIVE TAPE IN PLACE ON RIGHT ABD. MODERATE EXUDATE NOTED ON GAUZE. IND IN THE ROOM AND TO THE BATHROOM. AMBULATES AROUND THE ROOM OFTEN. PAIN MANAGED PER EMAR ORDERS. PT DOES NOT FEEL COMFORTABLE DC HOME TODAY AND REQUESTED TO STAY ANOTHER NIGHT. PLANS TO DC HOME TOMORROW.
--- NOTE | 2022-03-13 18:45 | NUR ---
DRESSING CHANGE: GAUZE AND ADHESIVE TAPE REMOVED. NEW TEGADERM DRESSING W/ 4X4 GAUZE PLACED.
--- NOTE | 2022-03-13 23:53 | NUR ---
HR: TELE CALLED STATING PT HR TRENDING 50'S WHILE SLEEPING. REPORTS PT HR BRIEFLY TOUCHED 47, RETURNED BACK >50. PT ASYMPTOMATIC, WILL MONITOR AND NOTIFY MD FOR CHANGES OR IF SUSTAINING IN 40'S.
--- NOTE | 2022-03-14 01:01 | NUR ---
HEART RATE, NOTIFIED BY STOCK REPAIRER OF HEART RATE DROPPING IN TO THE HIGH 40S, IT DID DROP LOW 43 FOR A FEW SECONDS AND SUSTAINING AT 50 BPM. PATIENT IS ASYMPTOMATIC, WILL MONITOR FOR CHANGES AND NOTIFY DR IF IT CONTINUES TO SUSTAIN BELOW 50 OR PATIENT BECOMES SYMPTOMATIC
--- NOTE | 2022-03-14 05:02 | NUR ---
POD 1 S/P ABD WALL ABCESS I&D. PT HR DROPPED INTO 40'S AT TIMES WHILE SLEEPING, DID NOT SUSTAIN <50, PT ASYMPTOMMTIC. OTHER VSS. DRESSING CDI. PAIN MGD PER EMAR W/REP RELIEF. PT GUY REG PO, DENIED N/V, REP +FLATUS, IS VOIDING URINE W/O DIFFICULTY. PT AMB INDEP IN HALLS, GUY WELL. PT RESTING IN BED AT THIS TIME, NO DISTRESS NOTED.
--- NOTE | 2022-03-14 05:12 | NUR ---
SHIFT SUMMARY, PT POD1 FOR ABD WALL I&D WITH MALIA DRAIN. WOUND COVERED WITH GAUZE, AND TEGADERM. C/D/I. ABD HAS MILD DISTENTION, PT REPORTS PASSING GAS, SHE IS NONTENDER ON PALP. PT TOLERATING CL, VOIDING WELL. PT INDEP WITH AMBULATION. HR DROPPED INTO 40S WHILE SLEEPING, DID NOT SUSTAIN, WAS ASYMPTOMATIC, OTHER VSS PLAN TO DC HOME TODAY, CALL LIGHT IN REACH.
[2022-03-14 08:37] LABS: Creatinine, Blood 0.56 mg/dL (0.40-1.00); Vancomycin, Trough 16.5 ug/mL (5.0-10.0)
[2022-03-14] MEDS ORDERED: AMLO5 PO (11:09)
[2022-03-14] MEDS ORDERED: CEFD300 PO (11:11)
[2022-03-14] MEDS ORDERED: METR500 PO (11:12)
--- NOTE | 2022-03-14 11:40 | NUR ---
DISCHARGE DISCUSSED NEW MEDICATIONS & MED CHANGES; PT STATES UNDERSTANDING. GAUZE & TEGADERM GIVEN. MEDS FAXED TO [facility]. ESCORTED OUT VIA W/C.
== END 2022-03-14 11:40 | disposition home or self-care (01) | DRG 603 ==
LOC: ER 10:22 → SURS 18:03
PROVIDERS: Internal Medicine; Student in an Organized Health Care Education/Training Program; Surgery; ADMIT Internal Medicine
PROC: 0J980ZZ Drainage of Abdomen Subcutaneous Tissue and Fascia, Open Approach (ICD-10-PCS; principal; 2022-03-13 11:45)
DX: L02.211 Cutaneous abscess of abdominal wall (principal); Z20.822 Contact with and (suspected) exposure to COVID-19; I25.119 Atherosclerotic heart disease of native coronary artery with unspecified angina pectoris; I48.0 Paroxysmal atrial fibrillation; G25.81 Restless legs syndrome; T78.3XXA Angioneurotic edema, initial encounter; F41.9 Anxiety disorder, unspecified; F32.A Depression, unspecified; K43.9 Ventral hernia without obstruction or gangrene; D32.9 Benign neoplasm of meninges, unspecified; E11.9 Type 2 diabetes mellitus without complications; I10 Essential (primary) hypertension; Z88.2 Allergy status to sulfonamides; Z88.0 Allergy status to penicillin; Z85.038 Personal history of other malignant neoplasm of large intestine; Z88.1 Allergy status to other antibiotic agents; Z95.1 Presence of aortocoronary bypass graft; Z88.5 Allergy status to narcotic agent; Z88.8 Allergy status to other drugs, medicaments and biological substances; Z79.82 Long term (current) use of aspirin; Z95.5 Presence of coronary angioplasty implant and graft; Z79.899 Other long term (current) drug therapy; Z79.01 Long term (current) use of anticoagulants; Z79.84 Long term (current) use of oral hypoglycemic drugs; Z90.710 Acquired absence of both cervix and uterus; Z90.49 Acquired absence of other specified parts of digestive tract; Z98.890 Other specified postprocedural states
CPT/HCPCS: 36415; 70450; 74177; 78452; 80053; 80202; 81001; 82565; 82947; 83605; 83690; 84484; 85025; 85520; 85610; 85730; 87070; 87075; 87086; 87205; 93005; 93010; 93017; 93306; 96365-59; 96375; 99285-25; A9270; A9500; J0280; J1100; J1200; J1644; J1885; J2185; J2405; J2704; J2785; J3010; J3370; J3480; J7030; J7040; J7060; Q9967; U0004

== ENCOUNTER 2022-04-10 19:54 | Emergency (ER) | payer MEDICARE, BC, OTHER ==
[~2022-04-10] VITALS: Ht 170.2 cm; Wt 82.5 kg
[~2022-04-10 19:54] MED LIST changes: +AMLO5 PO; +CEFD300 PO; +IRON18 MG PO; +METR500 PO
== END 2022-04-10 23:03 | disposition home or self-care (01) ==
LOC: ER 19:54
DX: Z48.01 Encounter for change or removal of surgical wound dressing (principal); I10 Essential (primary) hypertension; I48.91 Unspecified atrial fibrillation; Z79.899 Other long term (current) drug therapy; Z79.84 Long term (current) use of oral hypoglycemic drugs; Z79.82 Long term (current) use of aspirin; Z88.1 Allergy status to other antibiotic agents; Z88.5 Allergy status to narcotic agent; Z88.2 Allergy status to sulfonamides; Z88.8 Allergy status to other drugs, medicaments and biological substances
CPT/HCPCS: 99282

== ENCOUNTER 2022-08-19 15:11 | Emergency (ER) | payer MEDICARE, BC, OTHER ==
[~2022-08-19] VITALS: Ht 170.2 cm; Wt 81.7 kg
[2022-08-19 16:11] LABS: BASOPHILS ABSOLUTE AUTO 0.03 K/mm3 (0.00-0.23); BASOPHILS PERCENT AUTO 0 % (0-2); EOSINOPHILS ABSOLUTE AUTO 0.15 K/mm3 (0.00-0.68); EOSINOPHILS PERCENT AUTO 2 % (0-6); Hematocrit 40.6 % (33.0-51.0); Hemoglobin 14.1 g/dL (11.5-16.0); IMMATURE GRAN ABSOLUTE AUTO 0.02 K/mm3 (0.00-0.10); IMMATURE GRAN PERCENT AUTO 0 % (0-1); LYMPHOCYTES ABSOLUTE AUTO 2.13 K/mm3 (0.84-5.20); LYMPHOCYTES PERCENT AUTO 28 % (21-46); MONOCYTES ABSOLUTE AUTO 0.65 K/mm3 (0.16-1.47); MONOCYTES PERCENT AUTO 9 % (4-13); Mean Corpuscular HGB 29.9 pg (26.0-34.0); Mean Corpuscular HGB Conc 34.7 g/dL (31.5-36.5); Mean Corpuscular Volume 86 fL (80-100); Mean Platelet Volume 9.7 fL (9.1-12.4); NEUTROPHILS ABSOLUTE AUTO 4.52 K/mm3 (1.96-9.15); NEUTROPHILS PERCENT AUTO 60 % (41-73); Platelet Count 291 K/mm3 (150-400); RDW Coefficient Variation 12.4 % (11.7-14.2); Red Blood Cell Count 4.71 M/mm3 (3.80-5.20)
[2022-08-19 16:19] LABS: Source, Urine Clean Catch
[2022-08-19 16:23] LABS: Appearance, Urine Clear (Clear); Bilirubin, Urine Neg (Neg); Blood, Urine Neg (Neg); Glucose Qualitative, Urine Neg (Neg); Ketones, Urine Neg (Neg); Leukocyte Esterase, Urine Neg (Neg); Nitrite, Urine Neg (Neg); Protein, Urine Neg (Neg); Specific Gravity, Urine 1.015 (1.003-1.022); Urobilinogen, Urine NORM (Normal); pH, Urine 6.5 (5.0-8.0)
[2022-08-19 16:30] LABS: Color, Urine Pale Yellow (P-Yellow)
[2022-08-19 17:23] LABS: Albumin/Globulin Ratio 1.1 (0.8-1.8); Bilirubin, Total 0.4 mg/dL (0.1-1.0); Bun/Creatinine Ratio 12.9 (12.0-20.0); Calcium, Blood 9.3 mg/dL (8.5-10.1); Creatinine, Blood 0.7 mg/dL (0.40-1.00); Globulin, Blood 3.5 g/dL (2.2-4.0); Potassium, Blood 3.8 mmol/L (3.5-5.5); Total Protein, Blood 7.5 g/dL (6.4-8.2)
== END 2022-08-19 22:35 | disposition home or self-care (01) ==
LOC: ER 15:11
PROVIDERS: Physician Assistant
DX: R10.32 Left lower quadrant pain (principal); R07.89 Other chest pain; I10 Essential (primary) hypertension; I48.91 Unspecified atrial fibrillation; Z88.2 Allergy status to sulfonamides; Z88.1 Allergy status to other antibiotic agents; Z88.0 Allergy status to penicillin; Z88.5 Allergy status to narcotic agent; Z88.8 Allergy status to other drugs, medicaments and biological substances; Z79.899 Other long term (current) drug therapy; Z79.01 Long term (current) use of anticoagulants
CPT/HCPCS: 36415; 74177; 80053; 81003; 83690; 84484; 85025; 85379; 93005; 93010; J1170; J1885; J2405; J3010; J7030; Q9967

== ENCOUNTER 2022-09-16 19:27 | Emergency (ER) | payer MEDICARE, BC, OTHER ==
[~2022-09-16] VITALS: Ht 170.2 cm; Wt 81.7 kg
[2022-09-16 20:40] LABS: Influenza B, PCR NEGATIVE (NEGATIVE); Resp Syncytial Virus, PCR NEGATIVE (NEGATIVE); SARS-Cov-2 (COVID-19) PCR, MMC NEGATIVE (NEGATIVE)
[2022-09-16 20:42] LABS: Influenza A, PCR POSITIVE (NEGATIVE)
== END 2022-09-16 21:56 | disposition home or self-care (01) ==
LOC: ER 19:27
PROVIDERS: Physician Assistant
DX: J10.1 Influenza due to other identified influenza virus with other respiratory manifestations (principal); I10 Essential (primary) hypertension; E11.9 Type 2 diabetes mellitus without complications; Z79.84 Long term (current) use of oral hypoglycemic drugs; Z20.822 Contact with and (suspected) exposure to COVID-19; Z88.2 Allergy status to sulfonamides; Z88.1 Allergy status to other antibiotic agents; Z88.0 Allergy status to penicillin; Z88.5 Allergy status to narcotic agent; Z88.8 Allergy status to other drugs, medicaments and biological substances; Z79.899 Other long term (current) drug therapy; Z79.82 Long term (current) use of aspirin
CPT/HCPCS: 0241U

== ENCOUNTER 2023-01-08 16:05 | Emergency (ER) | payer MEDICARE, BC, OTHER ==
[~2023-01-08] VITALS: Ht 167.6 cm; Wt 81.7 kg
[2023-01-08 17:09] LABS: BASOPHILS ABSOLUTE AUTO 0.04 K/mm3 (0.00-0.23); BASOPHILS PERCENT AUTO 1 % (0-2); EOSINOPHILS ABSOLUTE AUTO 0.14 K/mm3 (0.00-0.68); EOSINOPHILS PERCENT AUTO 2 % (0-6); Hematocrit 40.5 % (33.0-51.0); Hemoglobin 13.6 g/dL (11.5-16.0); IMMATURE GRAN ABSOLUTE AUTO 0.02 K/mm3 (0.00-0.10); IMMATURE GRAN PERCENT AUTO 0 % (0-1); LYMPHOCYTES ABSOLUTE AUTO 2.34 K/mm3 (0.84-5.20); LYMPHOCYTES PERCENT AUTO 30 % (21-46); MONOCYTES ABSOLUTE AUTO 0.73 K/mm3 (0.16-1.47); MONOCYTES PERCENT AUTO 9 % (4-13); Mean Corpuscular HGB 28.1 pg (26.0-34.0); Mean Corpuscular HGB Conc 33.6 g/dL (31.5-36.5); Mean Corpuscular Volume 84 fL (80-100); Mean Platelet Volume 9.7 fL (9.1-12.4); NEUTROPHILS ABSOLUTE AUTO 4.51 K/mm3 (1.96-9.15); NEUTROPHILS PERCENT AUTO 58 % (41-73); Platelet Count 335 K/mm3 (150-400); RDW Coefficient Variation 12.7 % (11.7-14.2); RDW Standard Deviation 38.5 fL (35.1-46.3); Red Blood Cell Count 4.84 M/mm3 (3.80-5.20); White Blood Cell Count 7.78 K/mm3 (4.00-11.30)
[2023-01-08 17:35] LABS: Albumin, Blood 4.3 g/dL (3.4-5.0); Albumin/Globulin Ratio 1.2 (0.8-1.8); Bilirubin, Total 0.4 mg/dL (0.1-1.0); Calcium, Blood 9.4 mg/dL (8.5-10.1); Creatinine, Blood 0.75 mg/dL (0.40-1.00); Globulin, Blood 3.7 g/dL (2.2-4.0); Potassium, Blood 3.8 mmol/L (3.5-5.5)
[2023-01-08] MEDS ORDERED: PROP10 PO (19:30)
== END 2023-01-08 21:03 | disposition home or self-care (01) ==
LOC: ER 16:05
PROVIDERS: Physician Assistant
DX: R07.89 Other chest pain (principal); Z79.82 Long term (current) use of aspirin; Z79.899 Other long term (current) drug therapy; Z79.84 Long term (current) use of oral hypoglycemic drugs; Z95.1 Presence of aortocoronary bypass graft
CPT/HCPCS: 36415; 71046; 80053; 84484; 85025; 93005; 93010

== ENCOUNTER 2023-06-12 09:20 | Emergency (ER) | payer MEDICARE, BC, OTHER ==
[~2023-06-12] VITALS: Ht 170.2 cm; Wt 79.4 kg
[~2023-06-12 09:20] MED LIST changes: -ATOR20 PO; +ATOR40TA PO; +CLOP75 PO; -GABA600 PO; +Imdur-ER60 MG PO
[2023-06-12 10:27] LABS: BASOPHILS ABSOLUTE AUTO 0.02 K/mm3 (0.00-0.23); BASOPHILS PERCENT AUTO 0 % (0-2); EOSINOPHILS ABSOLUTE AUTO 0.14 K/mm3 (0.00-0.68); EOSINOPHILS PERCENT AUTO 2 % (0-6); Hematocrit 39.1 % (33.0-51.0); Hemoglobin 12.9 g/dL (11.5-16.0); IMMATURE GRAN ABSOLUTE AUTO 0.03 K/mm3 (0.00-0.10); IMMATURE GRAN PERCENT AUTO 1 % (0-1); LYMPHOCYTES ABSOLUTE AUTO 1.66 K/mm3 (0.84-5.20); LYMPHOCYTES PERCENT AUTO 27 % (21-46); MONOCYTES ABSOLUTE AUTO 0.49 K/mm3 (0.16-1.47); MONOCYTES PERCENT AUTO 8 % (4-13); Mean Corpuscular HGB 28.5 pg (26.0-34.0); Mean Corpuscular Volume 86 fL (80-100); NEUTROPHILS ABSOLUTE AUTO 3.71 K/mm3 (1.96-9.15); NEUTROPHILS PERCENT AUTO 61 % (41-73); Platelet Count 241 K/mm3 (150-400); RDW Coefficient Variation 12.7 % (11.7-14.2); Red Blood Cell Count 4.53 M/mm3 (3.80-5.20); White Blood Cell Count 6.05 K/mm3 (4.00-11.30)
[2023-06-12 10:57] LABS: Source, Urine Clean Catch
[2023-06-12 11:00] LABS: Appearance, Urine Clear (Clear); Bilirubin, Urine Neg (Neg); Blood, Urine 1+ (Neg); Color, Urine Yellow (P-Yellow); Glucose Qualitative, Urine Neg (Neg); Ketones, Urine Neg (Neg); Leukocyte Esterase, Urine Neg (Neg); Nitrite, Urine Neg (Neg); Protein, Urine 1+ (Neg); Specific Gravity, Urine 1.015 (1.003-1.022); Urobilinogen, Urine NORM (Normal)
[2023-06-12 11:15] LABS: Bacteria Rare /hpf; Squamous Epithelial Cells Few /hpf (Few); White Blood Cells, Urine 0-2 /hpf (0-5)
[2023-06-12 11:29] LABS: Albumin/Globulin Ratio 1.1 (0.8-1.8); Bilirubin, Total 0.4 mg/dL (0.1-1.0); Bun/Creatinine Ratio 12.5 (12.0-20.0); Calcium, Blood 9.7 mg/dL (8.5-10.1); Creatinine, Blood 1.04 mg/dL (0.40-1.00); Globulin, Blood 3.6 g/dL (2.2-4.0); Potassium, Blood 4.1 mmol/L (3.5-5.5); Total Protein, Blood 7.6 g/dL (6.4-8.2)
[2023-06-12 12:41] VITALS: BP 182/73
== END 2023-06-12 13:26 | disposition home or self-care (01) ==
LOC: ER 09:20
PROVIDERS: Student in an Organized Health Care Education/Training Program
DX: M48.061 Spinal stenosis, lumbar region without neurogenic claudication (principal); M43.06 Spondylolysis, lumbar region; R10.9 Unspecified abdominal pain; M54.16 Radiculopathy, lumbar region; Z88.2 Allergy status to sulfonamides; Z88.1 Allergy status to other antibiotic agents; Z88.0 Allergy status to penicillin; Z88.5 Allergy status to narcotic agent; Z79.899 Other long term (current) drug therapy; Z79.82 Long term (current) use of aspirin; Z79.84 Long term (current) use of oral hypoglycemic drugs; I10 Essential (primary) hypertension; I48.91 Unspecified atrial fibrillation; E11.9 Type 2 diabetes mellitus without complications
CPT/HCPCS: 74177; 80053; 81001; 83690; 85025; 87077; 87086; 87186; 93005; 93010; 96361; 96374; 99284-25; J1885; J7030; Q9967

== ENCOUNTER 2023-06-21 18:41 | Emergency (ER) | payer MEDICARE, BC, OTHER ==
[~2023-06-21] VITALS: Ht 170.2 cm; Wt 81.7 kg
[2023-06-21 19:07] VITALS: BP 120/82
[2023-06-21 19:31] LABS: BASOPHILS ABSOLUTE AUTO 0.03 K/mm3 (0.00-0.23); BASOPHILS PERCENT AUTO 0 % (0-2); EOSINOPHILS ABSOLUTE AUTO 0.13 K/mm3 (0.00-0.68); EOSINOPHILS PERCENT AUTO 1 % (0-6); Hemoglobin 13.4 g/dL (11.5-16.0); IMMATURE GRAN ABSOLUTE AUTO 0.03 K/mm3 (0.00-0.10); IMMATURE GRAN PERCENT AUTO 0 % (0-1); LYMPHOCYTES ABSOLUTE AUTO 1.45 K/mm3 (0.84-5.20); LYMPHOCYTES PERCENT AUTO 15 % (21-46); MONOCYTES ABSOLUTE AUTO 0.75 K/mm3 (0.16-1.47); MONOCYTES PERCENT AUTO 8 % (4-13); Mean Corpuscular HGB 28.8 pg (26.0-34.0); Mean Corpuscular HGB Conc 35.3 g/dL (31.5-36.5); Mean Corpuscular Volume 82 fL (80-100); Mean Platelet Volume 10.3 fL (9.1-12.4); NEUTROPHILS ABSOLUTE AUTO 7.52 K/mm3 (1.96-9.15); NEUTROPHILS PERCENT AUTO 76 % (41-73); Platelet Count 249 K/mm3 (150-400); RDW Coefficient Variation 12.7 % (11.7-14.2); RDW Standard Deviation 37.1 fL (35.1-46.3); Red Blood Cell Count 4.66 M/mm3 (3.80-5.20); White Blood Cell Count 9.91 K/mm3 (4.00-11.30)
[2023-06-21 19:49] LABS: Albumin/Globulin Ratio 1.1 (0.8-1.8); Bilirubin, Total 0.7 mg/dL (0.1-1.0); Bun/Creatinine Ratio 11.1 (12.0-20.0); Calcium, Blood 9.6 mg/dL (8.5-10.1); Creatinine, Blood 1.08 mg/dL (0.40-1.00); Globulin, Blood 3.6 g/dL (2.2-4.0); Potassium, Blood 3.1 mmol/L (3.5-5.5); Total Protein, Blood 7.6 g/dL (6.4-8.2)
== END 2023-06-21 22:49 | disposition home or self-care (01) ==
LOC: ER 18:41
PROVIDERS: Emergency Medicine
DX: R07.9 Chest pain, unspecified (principal); E87.6 Hypokalemia; Z88.2 Allergy status to sulfonamides; Z88.1 Allergy status to other antibiotic agents; Z88.0 Allergy status to penicillin; Z88.5 Allergy status to narcotic agent; Z79.899 Other long term (current) drug therapy; Z79.82 Long term (current) use of aspirin; Z79.84 Long term (current) use of oral hypoglycemic drugs; I10 Essential (primary) hypertension; I48.91 Unspecified atrial fibrillation; E11.9 Type 2 diabetes mellitus without complications; I25.10 Atherosclerotic heart disease of native coronary artery without angina pectoris; I25.2 Old myocardial infarction
CPT/HCPCS: 71045; 80053; 84484; 85025; 93005; 93010; 99285-25

== ENCOUNTER 2023-07-30 18:53 | Inpatient (IN) | payer MEDICARE, BC, OTHER ==
[~2023-07-30] VITALS: Ht 170.2 cm; Wt 79.8 kg
[2023-07-30 20:22] LABS: BASOPHILS ABSOLUTE AUTO 0.02 K/mm3 (0.00-0.23); BASOPHILS PERCENT AUTO 0 % (0-2); EOSINOPHILS ABSOLUTE AUTO 0.14 K/mm3 (0.00-0.68); EOSINOPHILS PERCENT AUTO 2 % (0-6); Hematocrit 34.1 % (33.0-51.0); Hemoglobin 11.5 g/dL (11.5-16.0); IMMATURE GRAN ABSOLUTE AUTO 0.03 K/mm3 (0.00-0.10); IMMATURE GRAN PERCENT AUTO 0 % (0-1); LYMPHOCYTES ABSOLUTE AUTO 1.56 K/mm3 (0.84-5.20); LYMPHOCYTES PERCENT AUTO 21 % (21-46); MONOCYTES ABSOLUTE AUTO 0.75 K/mm3 (0.16-1.47); MONOCYTES PERCENT AUTO 10 % (4-13); Mean Corpuscular HGB Conc 33.7 g/dL (31.5-36.5); Mean Corpuscular Volume 86 fL (80-100); Mean Platelet Volume 10.3 fL (9.1-12.4); NEUTROPHILS ABSOLUTE AUTO 4.95 K/mm3 (1.96-9.15); NEUTROPHILS PERCENT AUTO 66 % (41-73); Platelet Count 221 K/mm3 (150-400); RDW Coefficient Variation 13.2 % (11.7-14.2); RDW Standard Deviation 41.3 fL (35.1-46.3); Red Blood Cell Count 3.96 M/mm3 (3.80-5.20); White Blood Cell Count 7.45 K/mm3 (4.00-11.30)
[2023-07-30 20:42] LABS: Albumin, Blood 3.5 g/dL (3.4-5.0); Bilirubin, Total 0.6 mg/dL (0.1-1.0); Bun/Creatinine Ratio 14.7 (12.0-20.0); Calcium, Blood 9.1 mg/dL (8.5-10.1); Creatinine, Blood 1.02 mg/dL (0.40-1.00); Globulin, Blood 3.5 g/dL (2.2-4.0); Potassium, Blood 4.2 mmol/L (3.5-5.5)
[2023-07-30] MEDS ORDERED: ABILIFY MYCITE2 M2 PO (23:17)
[2023-07-30] MEDS ORDERED: Ropinirole HCl1 MG PO (23:19)
[2023-07-31] VITALS (23 sets, daily range): BP systolic 88–180; BP diastolic 53–100
[2023-07-31 00:06] LABS: International Normalized Ratio 0.94; Prothrombin Time Results 9.9 Sec (9.7-11.5)
--- NOTE | 2023-07-31 05:53 | NUR ---
SHIFT SUMMARY: PT IS ALERT AND ORIENTED. PT IS CALM AND COOPERATIVE WITH CARE. PT CALLS APPROPRIATELY. PT IS INDEPENDENT TO THE BSC, STANDBY ASSIST TO THE BATHROOM. PT REPORTS PAIN IN HER L. WRIST AND L. ABD, MEDICATING PER EMAR. PT DENIES NAUSEA, VOMITING, AND SOB. ORTHO CONSULT CALLED TO ANSWERING SERVICE. BED IN LOW POSITION, CALL LIGHT WITHIN REACH. WILL CONTINUE TO MONITOR.
[2023-07-31 05:55] LABS: BASOPHILS ABSOLUTE AUTO 0.02 K/mm3 (0.00-0.23); BASOPHILS PERCENT AUTO 0 % (0-2); EOSINOPHILS ABSOLUTE AUTO 0.15 K/mm3 (0.00-0.68); EOSINOPHILS PERCENT AUTO 2 % (0-6); Hematocrit 32.2 % (33.0-51.0); Hemoglobin 10.8 g/dL (11.5-16.0); IMMATURE GRAN ABSOLUTE AUTO 0.03 K/mm3 (0.00-0.10); IMMATURE GRAN PERCENT AUTO 0 % (0-1); LYMPHOCYTES ABSOLUTE AUTO 2.04 K/mm3 (0.84-5.20); LYMPHOCYTES PERCENT AUTO 28 % (21-46); MONOCYTES ABSOLUTE AUTO 0.81 K/mm3 (0.16-1.47); MONOCYTES PERCENT AUTO 11 % (4-13); Mean Corpuscular HGB 28.6 pg (26.0-34.0); Mean Corpuscular HGB Conc 33.5 g/dL (31.5-36.5); Mean Corpuscular Volume 85 fL (80-100); Mean Platelet Volume 10.4 fL (9.1-12.4); NEUTROPHILS PERCENT AUTO 58 % (41-73); Platelet Count 216 K/mm3 (150-400); RDW Standard Deviation 40.2 fL (35.1-46.3); Red Blood Cell Count 3.78 M/mm3 (3.80-5.20); White Blood Cell Count 7.25 K/mm3 (4.00-11.30)
[2023-07-31 06:23] LABS: Albumin, Blood 3.4 g/dL (3.4-5.0); Albumin/Globulin Ratio 1.1 (0.8-1.8); Bilirubin, Total 0.5 mg/dL (0.1-1.0); Bun/Creatinine Ratio 15.3 (12.0-20.0); Creatinine, Blood 0.85 mg/dL (0.40-1.00); Globulin, Blood 3.1 g/dL (2.2-4.0); Potassium, Blood 3.7 mmol/L (3.5-5.5); Total Protein, Blood 6.5 g/dL (6.4-8.2)
--- NOTE | 2023-07-31 10:33 | NUR ---
PATIENT OFF UNIT VIA [facility] TO DAY SURGERY AT 1030.
--- NOTE | 2023-07-31 10:41 | NUR ---
[facility] inTO Day Surgery. Patient confirms NPO status and agrees with scheduled surgery. History, Chart, Medications and Allergies reviewed before start of procedure.Pre-Op teaching done. Pt verbalizes understanding.
--- NOTE | 2023-07-31 10:44 | NUR ---
DR. MADISON AT TALKING W/PT. SLING AND CASANDRA REMOVED. SPLINT INTACT. A BLOODY BANAGE NOTED ON LEFT LATERAL ASPECT OF WRIST.
--- NOTE | 2023-07-31 11:55 | NUR ---
07/31/23 [id number] Cyndi Holt PT RECIEVED A BLOCK FROM ANESTHESIA. PT RECIEVED ANTIBIOTICS PRIOR TO ARRIVAL TO OR SCHEDULED.
--- NOTE | 2023-07-31 15:40 | NUR ---
Pt. is awake in bed, welcomes my visit, and invites me to pull up a chair. Pt. displays evidence of somnolence and ocassionally dozes off mid sentence. Pt. welcomed prayer, removed her oximeter, and took my hand. Prayed with Pt. When nurse arrived I excused myself. Pt. welcomed this medical delivery driver to return.
--- NOTE | 2023-07-31 19:22 | NUR ---
SHIFT SUMMARY PT ARRIVED TO THE FLOOR FROM PACU AFTER SURGERY, MILD CONFUSION R/T ANESTHESIA WHICH CLEARED UP WITHIN THE FIRST TWO HOURS, ABLE TO STAND PIVOT TO BSC TO VOID BUT WAS SLOW WITH MOVEMENT AND UNSTEADY AT FIRST, AFTER ANESTHESIA WORE OFF SHE WAS ABLE TO AMBULATE INDEPENDENTLY AND MAKE NEEDS KNOWN, DISCUSSED PLAN OF CARE WITH HER INCLUDING OVER NIGHT OBSERVATION AND POSSIBLE DC TOMORROW. NO ACUTE EVENTS THIS SHIFT, CALL LIGHT IN REACH.
[2023-08-01] VITALS (8 sets, daily range): BP systolic 108–145; BP diastolic 52–72
--- NOTE | 2023-08-01 00:47 | NUR ---
LOW BP MIDNIGHT VITALS SHOWED A DROP IN BLOOD PRESSURE FOR THE PT. AMBULATING TO THE RESTROOM, THE PATIENT WAS UNSYMPTOMATIC. WHEN AMBULATING BACK FROM THE RESTROOM, THE PATIENT WAS SYMPTOMATIC, SHE REPORTED FEELING DIZZY AND WAS VISIBLY SWAYING. A GAIT BELT WAS USED TO SAFELY GET THE PATIENT BACK INTO BED. THE BED ALARM WAS PUT ON. WHEN THE PATIENT FALLS ASLEEP, HER OXYGEN SATURATION DROPPED TO 89% ON RA, SHE WAS PUT ON 1L 02 NC. A CALL TO THE DOCTOR WAS MADE, WHERE HE ORDERED A FLUID BOLUS FOR THE PATIENT.
--- NOTE | 2023-08-01 04:38 | NUR ---
SHIFT SUMMARY POD 1 L WRIST ORIF. NO ACUTE CHANGES OVERNIGHT. VS NOW STABLE FROM PREVIOUS NOTE. A&O x4. SLING/ SPLINT/ CASANDRA WRAP C/D/I, MILD SWELLING TO FINGERS. TOLERATING ORALS. AMBULATIING INDEPENDENTLY TO RESTROOM, STAND BY ASSIST. BED ALARM ON SAFETY PRECAUTION. ANTICIPATED DISCHARGE TODAY AFTER WORKING WITH OT. CALL LIGHT WITHIN REACH, BED IN LOWEST POSITION, WILL REPORT TO DAY RN.
[2023-08-01 06:37] LABS: BASOPHILS ABSOLUTE AUTO 0.02 K/mm3 (0.00-0.23); BASOPHILS PERCENT AUTO 0 % (0-2); EOSINOPHILS ABSOLUTE AUTO 0.02 K/mm3 (0.00-0.68); EOSINOPHILS PERCENT AUTO 0 % (0-6); Hematocrit 32.1 % (33.0-51.0); Hemoglobin 10.6 g/dL (11.5-16.0); IMMATURE GRAN ABSOLUTE AUTO 0.03 K/mm3 (0.00-0.10); IMMATURE GRAN PERCENT AUTO 0 % (0-1); LYMPHOCYTES ABSOLUTE AUTO 1.07 K/mm3 (0.84-5.20); LYMPHOCYTES PERCENT AUTO 14 % (21-46); MONOCYTES ABSOLUTE AUTO 0.65 K/mm3 (0.16-1.47); MONOCYTES PERCENT AUTO 8 % (4-13); Mean Corpuscular Volume 88 fL (80-100); Mean Platelet Volume 10.3 fL (9.1-12.4); NEUTROPHILS ABSOLUTE AUTO 5.93 K/mm3 (1.96-9.15); NEUTROPHILS PERCENT AUTO 77 % (41-73); Platelet Count 222 K/mm3 (150-400); RDW Standard Deviation 41.7 fL (35.1-46.3); Red Blood Cell Count 3.65 M/mm3 (3.80-5.20); White Blood Cell Count 7.72 K/mm3 (4.00-11.30)
[2023-08-01 06:47] LABS: Bun/Creatinine Ratio 15.6 (12.0-20.0); Calcium, Blood 8.6 mg/dL (8.5-10.1); Creatinine, Blood 0.83 mg/dL (0.40-1.00); Potassium, Blood 3.6 mmol/L (3.5-5.5)
[2023-08-01] MEDS ORDERED: SPIRIVA RESPIMAT4 G2 INH (16:29)
--- NOTE | 2023-08-01 17:15 | NUR ---
summary NO ACUTE CHANGES T/O SHIFT. PT WORKED WITH OT AND PT. AMBULATED IN M[place] W/RN W/O DIFFICULTY USING HEMIWALKER. VSS. HELD PROPANOLOL THIS AM DUE TO HR OF 59. ORDERS OBTAINED FROM DR LINDO TO HOLD HS PROPRANOLOL ALSO. IV DC'D DUE TO LEAKING, OBTAINED ORDER FOR NO IV ACCESS NEEDED. PT CALLED THIS EVENING TO STATE FELT LIKE FINGERS MORE SWOLLEN. ENCOURAGED PT TO ELEVATE ON PILLOW AND REST ON ICE INTERMITTENTLY (PT HAD PREVIOUSLY DECLINED ICE). PT RESTING WITH LUE ELEVATED AND ON ICE PACK AT THIS TIME. HAND HAS BEEN BRUISED AND EDEMATOUS T/O SHIFT. FINGERS SOFT AND CAP REFILL LESS THAN 3 SECONDS. MEDICATED PER ORDERS T/O SHIFT FOR PAIN. COVERED CBG PER ORDERS. PT TOLERATING DIET AND VOIDING WITHOUT DIFFICULTY. CALL LIGHT IN REACH.
[2023-08-02 04:25] VITALS: BP 151/70
[2023-08-02 05:17] LABS: BASOPHILS ABSOLUTE AUTO 0.03 K/mm3 (0.00-0.23); BASOPHILS PERCENT AUTO 1 % (0-2); EOSINOPHILS ABSOLUTE AUTO 0.16 K/mm3 (0.00-0.68); EOSINOPHILS PERCENT AUTO 3 % (0-6); Hematocrit 31.9 % (33.0-51.0); Hemoglobin 10.2 g/dL (11.5-16.0); IMMATURE GRAN ABSOLUTE AUTO 0.02 K/mm3 (0.00-0.10); IMMATURE GRAN PERCENT AUTO 0 % (0-1); LYMPHOCYTES ABSOLUTE AUTO 2.28 K/mm3 (0.84-5.20); LYMPHOCYTES PERCENT AUTO 35 % (21-46); MONOCYTES ABSOLUTE AUTO 0.62 K/mm3 (0.16-1.47); MONOCYTES PERCENT AUTO 10 % (4-13); Mean Corpuscular Volume 88 fL (80-100); Mean Platelet Volume 10.1 fL (9.1-12.4); NEUTROPHILS ABSOLUTE AUTO 3.35 K/mm3 (1.96-9.15); NEUTROPHILS PERCENT AUTO 52 % (41-73); Platelet Count 229 K/mm3 (150-400); RDW Coefficient Variation 13.2 % (11.7-14.2); RDW Standard Deviation 41.8 fL (35.1-46.3); Red Blood Cell Count 3.64 M/mm3 (3.80-5.20); White Blood Cell Count 6.46 K/mm3 (4.00-11.30)
[2023-08-02 05:41] LABS: Albumin, Blood 3.3 g/dL (3.4-5.0); Anion Gap 4 mmol/L (6-16); Blood Urea Nitrogen 11 mg/dL (8-24); Bun/Creatinine Ratio 12.6 (12.0-20.0); CO2, Blood 31 mmol/L (21-32); Calcium, Blood 8.7 mg/dL (8.5-10.1); Chloride, Blood 106 mmol/L (98-108); Creatinine, Blood 0.88 mg/dL (0.40-1.00); Glomerular Filtration Rate 72 (60-); Glucose, Blood 126 mg/dL (70-99); Phosphorus, Blood 2.9 mg/dL (2.5-4.9); Potassium, Blood 3.7 mmol/L (3.5-5.5); Sodium, Blood 141 mmol/L (136-145)
[2023-08-02 07:13] VITALS: BP 145/73
--- NOTE | 2023-08-02 07:53 | NUR ---
SUMMARY PT AMBULATORY WITH SBA DUE TO ONGOING INTERMITTENT EPISODES OF DIZZYNESS.PT VERB HAS BEEN DIZZY LIKE THIS AT HOME FOR APPROX 2 MONTHS.PT IS TO HAVE MRI SECONDARY TO WEAKNESS AND N/T BLE /FEET,BUT THIS IS PENDING RECORDS FROM [facility] SO THAT MRI FORMED CAN BE COMPLETED CORRECTLY.
--- NOTE | 2023-08-02 12:01 | NUR ---
PT TO MRI.
--- NOTE | 2023-08-02 13:12 | NUR ---
working w/ Meredith/PT
--- NOTE | 2023-08-02 14:16 | NUR ---
BURDEN IN TO SEE PT.
[2023-08-02 14:41] VITALS: BP 135/91
[2023-08-02] MEDS ORDERED: OXAYDO5 M1 PO (14:48)
[2023-08-02] MEDS ORDERED: ACET500 PO (14:49)
[2023-08-02] MEDS ORDERED: CEPH500 PO (14:51)
[2023-08-02] MEDS ORDERED: MIRALAX17 GM PO (14:52)
[2023-08-02] MEDS ORDERED: VISBIOME 112.51 EACH PO (14:53)
--- NOTE | 2023-08-02 15:31 | NUR ---
discharging FAXED PRESCRIPTIONS TO [facility] PER PT REQUEST. REVIEWED DC INSTRUCTIONS W/PT AND DAUGHTER; VERBALIZED UNDERSTANDING. IV DC'D.
--- NOTE | 2023-08-02 15:34 | NUR ---
DISCHARGED PT LEAVING IN WC W/POSSESSIONS AND DC PAPERWORK IN HAND, DAUGHTER WAITING OUTSIDE WITH RIDE.
== END 2023-08-02 15:36 | disposition home or self-care (01) | DRG 512 ==
LOC: ER 18:53 → MEDS 18:54 → SURS 07-31 13:44
PROVIDERS: Emergency Medicine; Family Medicine; Internal Medicine; Orthopaedic Surgery; ADMIT Internal Medicine
PROC: 0PSJ04Z Reposition Left Radius with Internal Fixation Device, Open Approach (ICD-10-PCS; principal; 2023-07-31 10:30)
DX: S52.502B Unspecified fracture of the lower end of left radius, initial encounter for open fracture type I or II (principal); S52.612B Displaced fracture of left ulna styloid process, initial encounter for open fracture type I or II; W18.30XA Fall on same level, unspecified, initial encounter; I25.10 Atherosclerotic heart disease of native coronary artery without angina pectoris; E11.9 Type 2 diabetes mellitus without complications; I10 Essential (primary) hypertension; E78.5 Hyperlipidemia, unspecified; G25.81 Restless legs syndrome; M48.04 Spinal stenosis, thoracic region; J44.9 Chronic obstructive pulmonary disease, unspecified; I48.91 Unspecified atrial fibrillation; G89.29 Other chronic pain; Z95.1 Presence of aortocoronary bypass graft; Z88.2 Allergy status to sulfonamides; Z88.1 Allergy status to other antibiotic agents; Z88.0 Allergy status to penicillin; Z88.5 Allergy status to narcotic agent; Z88.8 Allergy status to other drugs, medicaments and biological substances; Z79.82 Long term (current) use of aspirin; Z79.84 Long term (current) use of oral hypoglycemic drugs; Z79.899 Other long term (current) drug therapy; Z79.02 Long term (current) use of antithrombotics/antiplatelets; I25.2 Old myocardial infarction; Z85.09 Personal history of malignant neoplasm of other digestive organs; Z90.710 Acquired absence of both cervix and uterus; Z95.5 Presence of coronary angioplasty implant and graft; Z90.49 Acquired absence of other specified parts of digestive tract; Z90.89 Acquired absence of other organs; Z87.891 Personal history of nicotine dependence; Z98.890 Other specified postprocedural states
CPT/HCPCS: 25605; 36415; 72146; 72148; 73100; 73110; 76000; 80048; 80053; 80069; 82947; 83735; 85025; 85610; 96365-59; 96367; 96375; 96375-59; 96376; 97116; 97162; 97166; 97530; 99152; 99284-25; A9270; C1713; G0378; J0690; J1100; J1170; J2250; J2405; J2704; J3010; J7030

== ENCOUNTER 2023-08-04 12:20 | Emergency (ER) | payer MEDICARE, BC, OTHER ==
[~2023-08-04] VITALS: Ht 170.2 cm; Wt 77.1 kg
[~2023-08-04 12:20] MED LIST changes: +ABILIFY MYCITE2 M2 PO; +MIRALAX17 GM PO; +OXAYDO5 M1 PO; +Ropinirole HCl1 MG PO; +SPIRIVA RESPIMAT4 G2 INH; +VISBIOME 112.51 EACH PO
[2023-08-04 12:50] VITALS: BP 147/82
== END 2023-08-04 13:59 | disposition home or self-care (01) ==
LOC: ER 12:20
DX: S52.502E Unspecified fracture of the lower end of left radius, subsequent encounter for open fracture type I or II with routine healing (principal); S50.12XA Contusion of left forearm, initial encounter; M25.522 Pain in left elbow; W19.XXXD Unspecified fall, subsequent encounter; I10 Essential (primary) hypertension; I48.91 Unspecified atrial fibrillation; E11.9 Type 2 diabetes mellitus without complications; I25.2 Old myocardial infarction; I25.10 Atherosclerotic heart disease of native coronary artery without angina pectoris; Z87.891 Personal history of nicotine dependence
CPT/HCPCS: 73080; 99283-25

== ENCOUNTER 2023-12-03 17:09 | Emergency (ER) | payer BC, OTHER ==
[~2023-12-03] VITALS: Ht 170.2 cm; Wt 83.9 kg
[2023-12-03 17:44] LABS: BASOPHILS ABSOLUTE AUTO 0.02 K/mm3 (0.00-0.23); BASOPHILS PERCENT AUTO 0 % (0-2); EOSINOPHILS ABSOLUTE AUTO 0.23 K/mm3 (0.00-0.68); EOSINOPHILS PERCENT AUTO 4 % (0-6); Hematocrit 35.1 % (33.0-51.0); Hemoglobin 11.6 g/dL (11.5-16.0); IMMATURE GRAN ABSOLUTE AUTO 0.02 K/mm3 (0.00-0.10); IMMATURE GRAN PERCENT AUTO 0 % (0-1); LYMPHOCYTES ABSOLUTE AUTO 1.52 K/mm3 (0.84-5.20); LYMPHOCYTES PERCENT AUTO 26 % (21-46); MONOCYTES ABSOLUTE AUTO 0.47 K/mm3 (0.16-1.47); MONOCYTES PERCENT AUTO 8 % (4-13); Mean Corpuscular HGB 28.8 pg (26.0-34.0); Mean Corpuscular Volume 87 fL (80-100); Mean Platelet Volume 9.4 fL (9.1-12.4); NEUTROPHILS ABSOLUTE AUTO 3.56 K/mm3 (1.96-9.15); NEUTROPHILS PERCENT AUTO 61 % (41-73); Platelet Count 265 K/mm3 (150-400); RDW Coefficient Variation 13.1 % (11.7-14.2); RDW Standard Deviation 41.1 fL (35.1-46.3); Red Blood Cell Count 4.03 M/mm3 (3.80-5.20); White Blood Cell Count 5.82 K/mm3 (4.00-11.30)
[2023-12-03 18:01] LABS: Albumin, Blood 3.7 g/dL (3.4-5.0); Bilirubin, Total 0.4 mg/dL (0.1-1.0); Bun/Creatinine Ratio 13.7 (12.0-20.0); Calcium, Blood 9.7 mg/dL (8.5-10.1); Creatinine, Blood 0.8 mg/dL (0.40-1.00); Globulin, Blood 3.8 g/dL (2.2-4.0); Potassium, Blood 4.7 mmol/L (3.5-5.5); Total Protein, Blood 7.5 g/dL (6.4-8.2)
[2023-12-03 18:09] LABS: Source, Urine Clean Catch
[2023-12-03 18:13] LABS: Appearance, Urine Clear (Clear); Bilirubin, Urine Neg (Neg); Blood, Urine 1+ (Neg); Color, Urine Yellow (P-Yellow); Glucose Qualitative, Urine Neg (Neg); Ketones, Urine Neg (Neg); Leukocyte Esterase, Urine Neg (Neg); Nitrite, Urine Neg (Neg); Protein, Urine Neg (Neg); Urobilinogen, Urine NORM (Normal)
[2023-12-03 18:22] LABS: Bacteria Few /hpf; Squamous Epithelial Cells Rare /hpf (Few)
[2023-12-03 19:11] VITALS: BP 151/75
== END 2023-12-03 20:26 | disposition home or self-care (01) ==
LOC: ER 17:09
PROVIDERS: Student in an Organized Health Care Education/Training Program
DX: M79.89 Other specified soft tissue disorders (principal); Z87.891 Personal history of nicotine dependence; I10 Essential (primary) hypertension; I48.91 Unspecified atrial fibrillation; E11.9 Type 2 diabetes mellitus without complications; I25.10 Atherosclerotic heart disease of native coronary artery without angina pectoris; I25.2 Old myocardial infarction; Z79.02 Long term (current) use of antithrombotics/antiplatelets; Z79.82 Long term (current) use of aspirin; Z79.84 Long term (current) use of oral hypoglycemic drugs; Z79.899 Other long term (current) drug therapy; Z88.0 Allergy status to penicillin; Z88.1 Allergy status to other antibiotic agents; Z88.2 Allergy status to sulfonamides; Z88.5 Allergy status to narcotic agent; Z88.8 Allergy status to other drugs, medicaments and biological substances
CPT/HCPCS: 80053; 81001; 85025; 99283

== ENCOUNTER → 2024-06-10 | Outpatient (CLI) | payer MEDICARE, BC, OTHER ==
[~2024-06-10] MED LIST changes: +BUME1 PO; +DILTIAZEM 24HR120 M2 PO; +DILTIAZEM 24HR120 M4 PO; +ISOSORBIDE MONO60 MG PO; +OXYCODONE-ACET1 EAC3; +PROP60 PO; +TRAM50; +[UNRECOGNIZED DRUG - CODE] PO
[2024-06-10 16:15] LABS: BASOPHILS ABSOLUTE AUTO 0.03 K/mm3 (0.00-0.23); BASOPHILS PERCENT AUTO 0 % (0-2); EOSINOPHILS ABSOLUTE AUTO 0.21 K/mm3 (0.00-0.68); EOSINOPHILS PERCENT AUTO 3 % (0-6); Hematocrit 35.3 % (33.0-51.0); Hemoglobin 11.3 g/dL (11.5-16.0); IMMATURE GRAN ABSOLUTE AUTO 0.02 K/mm3 (0.00-0.10); IMMATURE GRAN PERCENT AUTO 0 % (0-1); LYMPHOCYTES ABSOLUTE AUTO 1.81 K/mm3 (0.84-5.20); LYMPHOCYTES PERCENT AUTO 24 % (21-46); MONOCYTES ABSOLUTE AUTO 0.78 K/mm3 (0.16-1.47); MONOCYTES PERCENT AUTO 10 % (4-13); Mean Corpuscular HGB 27.2 pg (26.0-34.0); Mean Corpuscular Volume 85 fL (80-100); Mean Platelet Volume 9.9 fL (9.1-12.4); NEUTROPHILS ABSOLUTE AUTO 4.81 K/mm3 (1.96-9.15); NEUTROPHILS PERCENT AUTO 63 % (41-73); Platelet Count 290 K/mm3 (150-400); RDW Coefficient Variation 14.6 % (11.7-14.2); RDW Standard Deviation 44.9 fL (35.1-46.3); Red Blood Cell Count 4.15 M/mm3 (3.80-5.20); White Blood Cell Count 7.66 K/mm3 (4.00-11.30)
[2024-06-10 16:27] LABS: Albumin, Blood 3.5 g/dL (3.4-5.0); Albumin/Globulin Ratio 0.9 (0.8-1.8); Bilirubin, Total 0.5 mg/dL (0.1-1.0); Bun/Creatinine Ratio 8.2 (12.0-20.0); Calcium, Blood 9.2 mg/dL (8.5-10.1); Creatinine, Blood 0.98 mg/dL (0.40-1.00); Globulin, Blood 3.7 g/dL (2.2-4.0); Potassium, Blood 4.5 mmol/L (3.5-5.5); Total Protein, Blood 7.2 g/dL (6.4-8.2)
== END | disposition home or self-care (01) ==
LOC: LAB 16:11 → LAB SHORT 16:11
PROVIDERS: Chiropractor
DX: M54.50 Low back pain, unspecified (principal)
CPT/HCPCS: 80053; 85025

== ENCOUNTER 2024-07-09 12:55 | Emergency (ER) | payer MEDICARE, BC, OTHER ==
[~2024-07-09] VITALS: Ht 170.2 cm; Wt 86.2 kg
[2024-07-09 15:43] LABS: BASOPHILS ABSOLUTE AUTO 0.02 K/mm3 (0.00-0.23); BASOPHILS PERCENT AUTO 0 % (0-2); EOSINOPHILS ABSOLUTE AUTO 0.21 K/mm3 (0.00-0.68); EOSINOPHILS PERCENT AUTO 3 % (0-6); Hematocrit 35.6 % (33.0-51.0); Hemoglobin 11.6 g/dL (11.5-16.0); IMMATURE GRAN ABSOLUTE AUTO 0.03 K/mm3 (0.00-0.10); IMMATURE GRAN PERCENT AUTO 0 % (0-1); LYMPHOCYTES ABSOLUTE AUTO 1.95 K/mm3 (0.84-5.20); LYMPHOCYTES PERCENT AUTO 26 % (21-46); MONOCYTES ABSOLUTE AUTO 0.66 K/mm3 (0.16-1.47); MONOCYTES PERCENT AUTO 9 % (4-13); Mean Corpuscular HGB 27.2 pg (26.0-34.0); Mean Corpuscular HGB Conc 32.6 g/dL (31.5-36.5); Mean Corpuscular Volume 83 fL (80-100); Mean Platelet Volume 9.8 fL (9.1-12.4); NEUTROPHILS ABSOLUTE AUTO 4.71 K/mm3 (1.96-9.15); NEUTROPHILS PERCENT AUTO 62 % (41-73); Platelet Count 273 K/mm3 (150-400); RDW Coefficient Variation 14.4 % (11.7-14.2); RDW Standard Deviation 43.4 fL (35.1-46.3); Red Blood Cell Count 4.27 M/mm3 (3.80-5.20); White Blood Cell Count 7.58 K/mm3 (4.00-11.30)
[2024-07-09 15:57] LABS: Albumin, Blood 3.6 g/dL (3.4-5.0); Bilirubin, Total 0.4 mg/dL (0.1-1.0); Bun/Creatinine Ratio 15.1 (12.0-20.0); Calcium, Blood 9.7 mg/dL (8.5-10.1); Creatinine, Blood 0.8 mg/dL (0.40-1.00); Globulin, Blood 3.7 g/dL (2.2-4.0); Total Protein, Blood 7.3 g/dL (6.4-8.2)
[2024-07-09 17:31] VITALS: BP 145/98
== END 2024-07-09 17:34 | disposition home or self-care (01) ==
LOC: ER 12:55
PROVIDERS: Student in an Organized Health Care Education/Training Program
DX: I48.91 Unspecified atrial fibrillation (principal); I10 Essential (primary) hypertension; I25.10 Atherosclerotic heart disease of native coronary artery without angina pectoris; I25.2 Old myocardial infarction; E11.9 Type 2 diabetes mellitus without complications; R06.00 Dyspnea, unspecified; R53.83 Other fatigue; Z95.5 Presence of coronary angioplasty implant and graft; Z95.1 Presence of aortocoronary bypass graft; Z87.891 Personal history of nicotine dependence; Z88.0 Allergy status to penicillin; Z88.2 Allergy status to sulfonamides; Z88.1 Allergy status to other antibiotic agents; Z88.5 Allergy status to narcotic agent; Z88.8 Allergy status to other drugs, medicaments and biological substances; Z79.01 Long term (current) use of anticoagulants; Z79.84 Long term (current) use of oral hypoglycemic drugs; Z79.899 Other long term (current) drug therapy
CPT/HCPCS: 71046; 71260; 80053; 83735; 83880; 84443; 84484; 85025; 85379; 93005; 93010; 99285-25; Q9967

== ENCOUNTER 2024-08-14 12:57 | Inpatient (IN) | payer MEDICARE, BC, OTHER ==
[~2024-08-14] VITALS: Ht 165.1 cm; Wt 64.8 kg
[~2024-08-14 12:57] MED LIST changes: +DILTIAZEM 24HR360 MG PO; -OXYCODONE-ACET1 EAC3; +OXYCODONE-ACET1 EAC3 PO; -[UNRECOGNIZED DRUG - CODE] PO
[2024-08-14] MEDS ORDERED: CefTRIAXone Sodium 1,000 MG in NS 50 ML IV ONE (17:35)
[2024-08-14] MEDS ORDERED: Diltiazem HCl 5 MG / ML 10ML Vial IV PRN (18:45)
[2024-08-14] MEDS ORDERED: FLU VACC TS2024-25(6MOS UP)/PF 45 MCG/0.5 ML SYRINGE IM SCH (18:45)
[2024-08-14] MEDS ORDERED: Ondansetron HCl 2 MG / ML 2ML Vial IV PRN (18:45)
[2024-08-14] MEDS ORDERED: Albuterol 2.5 MG/3 ML VIAL INH PRN (18:50)
[2024-08-14] MEDS ORDERED: Tiotropium Bromide 2.5 MCG/ACT MIST INHAL (10 ACT/4 GM) INH SCH (18:50)
[2024-08-14] MEDS ORDERED: OxyCODONE 5 mg/Acetamin 325 mg TABLET PO PRN (18:50)
[2024-08-14] MEDS ORDERED: TraZODone HCl 100 MG Tab PO PRN (18:50)
[2024-08-14 18:59] LABS: BASOPHILS ABSOLUTE AUTO 0.03 K/mm3 (0.00-0.23); BASOPHILS PERCENT AUTO 0 % (0-2); EOSINOPHILS ABSOLUTE AUTO 0.19 K/mm3 (0.00-0.68); EOSINOPHILS PERCENT AUTO 2 % (0-6); Hematocrit 38.4 % (33.0-51.0); Hemoglobin 12.3 g/dL (11.5-16.0); IMMATURE GRAN ABSOLUTE AUTO 0.03 K/mm3 (0.00-0.10); IMMATURE GRAN PERCENT AUTO 0 % (0-1); LYMPHOCYTES ABSOLUTE AUTO 2.29 K/mm3 (0.84-5.20); LYMPHOCYTES PERCENT AUTO 27 % (21-46); MONOCYTES ABSOLUTE AUTO 0.73 K/mm3 (0.16-1.47); MONOCYTES PERCENT AUTO 9 % (4-13); Mean Corpuscular HGB 27.5 pg (26.0-34.0); Mean Corpuscular Volume 86 fL (80-100); NEUTROPHILS ABSOLUTE AUTO 5.11 K/mm3 (1.96-9.15); NEUTROPHILS PERCENT AUTO 61 % (41-73); Platelet Count 291 K/mm3 (150-400); RDW Coefficient Variation 14.4 % (11.7-14.2); RDW Standard Deviation 44.9 fL (35.1-46.3); Red Blood Cell Count 4.48 M/mm3 (3.80-5.20); White Blood Cell Count 8.38 K/mm3 (4.00-11.30)
[2024-08-14] MEDS ORDERED: Clindamycin 900mg in D5W 50ML 50 ML IV SCH (19:00)
[2024-08-14 19:11] LABS: Albumin/Globulin Ratio 1.1 (0.8-1.8); Bilirubin, Total 0.4 mg/dL (0.1-1.0); Bun/Creatinine Ratio 15.3 (12.0-20.0); Creatinine, Blood 0.85 mg/dL (0.40-1.00); Globulin, Blood 3.7 g/dL (2.2-4.0); Potassium, Blood 4.8 mmol/L (3.5-5.5); Total Protein, Blood 7.7 g/dL (6.4-8.2)
[2024-08-14 19:35] LABS: International Normalized Ratio 1.4; Prothrombin Time Results 14.6 Sec (9.7-11.5)
[2024-08-14] MEDS ORDERED: Isosorbide Mononitrate 60 MG TABCR PO SCH (21:00)
[2024-08-14] MEDS ORDERED: ARIPiprazole 2 MG Tablet PO SCH (21:00)
[2024-08-14] MEDS ORDERED: rOPINIRole HCl 2 MG Tab PO SCH (21:00)
[2024-08-14] MEDS ORDERED: Melatonin 3 MG Tab PO SCH (21:00)
[2024-08-14] MEDS ORDERED: Gabapentin 300 MG Cap PO SCH (21:00)
[2024-08-14] MEDS ORDERED: Propranolol HCL 60 MG CAPCR PO SCH (21:00)
[2024-08-14] MEDS ORDERED: Sennosides 8.6 MG Tab PO SCH (21:00)
[2024-08-14] MEDS ORDERED: Lactobacil 2-S.Thermo-Bifido 1 1 Cap PO SCH (21:00)
[2024-08-14 22:16] VITALS: BP 132/83
[2024-08-14] MEDS ORDERED: NS 1,000 ML IV SCH (23:30)
[2024-08-15] VITALS (17 sets, daily range): BP systolic 102–146; BP diastolic 75–104
[2024-08-15] MEDS ORDERED: Insulin Human Lispro 100 Units/ML 3ML Syringe SC SCH
--- NOTE | 2024-08-15 06:17 | NUR ---
Shift Summary Pt admitted to this floor from ED for cellulitis on her lower left abdomen. She has a small red lump which is hard to the touch. Imaging showed possible abcess. She has been NPO since 0000 for possible procedure today. She has been rcving NS @75. She is AOx4, independent in the room. She has DM2 and is on Q6 blood sugar checks with insulin coverage d/t NPO status. Her BG has been around 100-130. Besides the cellulitis the rest of her skin is in good condition. She is on tele running AFIB in the 90s.
[2024-08-15] MEDS ORDERED: Venlafaxine HCl 75 MG CapCR PO SCH (09:00)
[2024-08-15] MEDS ORDERED: dilTIAZem HCL 120 MG CAP.CD PO SCH (09:00)
[2024-08-15] MEDS ORDERED: Losartan Potassium 50 MG Tab PO SCH (09:00)
[2024-08-15] MEDS ORDERED: Clopidogrel Bisulfate 75 MG Tab PO SCH (09:00)
[2024-08-15] MEDS ORDERED: Aspirin 81 MG Chew PO SCH (09:00)
[2024-08-15] MEDS ORDERED: Atorvastatin 40 MG Tab PO SCH (09:00)
[2024-08-15 09:07] LABS: Hematocrit 35.4 % (33.0-51.0); Hemoglobin 11.6 g/dL (11.5-16.0); Mean Corpuscular HGB 26.9 pg (26.0-34.0); Mean Corpuscular HGB Conc 32.8 g/dL (31.5-36.5); Mean Corpuscular Volume 82 fL (80-100); Mean Platelet Volume 10.5 fL (9.1-12.4); Platelet Count 249 K/mm3 (150-400); RDW Coefficient Variation 14.2 % (11.7-14.2); RDW Standard Deviation 41.5 fL (35.1-46.3); Red Blood Cell Count 4.31 M/mm3 (3.80-5.20); White Blood Cell Count 6.12 K/mm3 (4.00-11.30)
[2024-08-15 09:18] LABS: International Normalized Ratio 1.4; Prothrombin Time Results 14.6 Sec (9.7-11.5)
[2024-08-15 09:22] LABS: Albumin, Blood 3.7 g/dL (3.4-5.0); Albumin/Globulin Ratio 1.1 (0.8-1.8); Bilirubin, Total 0.6 mg/dL (0.1-1.0); Bun/Creatinine Ratio 12.3 (12.0-20.0); Calcium, Blood 9.3 mg/dL (8.5-10.1); Creatinine, Blood 0.89 mg/dL (0.40-1.00); Globulin, Blood 3.4 g/dL (2.2-4.0); Potassium, Blood 4.3 mmol/L (3.5-5.5); Total Protein, Blood 7.1 g/dL (6.4-8.2)
[2024-08-15] MEDS ORDERED: Lactated Ringer's 1,000 ML IV SCH (13:40)
--- NOTE | 2024-08-15 14:03 | NUR ---
History, Chart, Medications and Allergies reviewed before start of procedure. Patient confirms NPO status and agrees with scheduled surgery. Report given to Levar Yoon RN. Levar Baron to resume care of patient.
[2024-08-15] MEDS ORDERED: FentaNYL Citrate 50 MCG/ML 2 ML Injection ONE (14:21)
[2024-08-15] MEDS ORDERED: propofoL 20 ML IV ONE (14:21)
[2024-08-15] MEDS ORDERED: Bupivacaine 0.5% HCl 5 MG/ML 30MLVIAL ONE (14:36)
[2024-08-15] MEDS ORDERED: Bupivacaine 0.5% Inj 50 ML Vial (NON CHARGE) INJ ONE ×2 (14:37)
[2024-08-15] MEDS ORDERED: Ketorolac Tromethamine 30mg Vial ONE (14:44)
--- NOTE | 2024-08-15 15:33 | NUR ---
PT RETURNED FORM SURGERY OF ABDOMEN DRAINAGE. A&OX4, AMBULATING TO BATHROOM. SURGICAL AREA COVERED WITH 4X4S, NO DRAIN. TELEMETRY CONNECTED, PT EATING SNACKS AND DRINKING FLUIDS.
[2024-08-15] MEDS ORDERED: SPIR25 PO (16:26)
[2024-08-15] MEDS ORDERED: Vitamin B Comple1 EA PO (16:27)
[2024-08-15] MEDS ORDERED: WARF4 PO (16:27)
[2024-08-15] MEDS ORDERED: DAPAGLIFLOZIN5 MG PO (16:28)
[2024-08-15] MEDS ORDERED: MULTIVITAMIN-M1 EACH PO (16:28)
--- NOTE | 2024-08-15 17:26 | NUR ---
SHIFT SUMMARY PT A&OX4, COOPERATIVE, ABLE TO MAKE NEEDS KNOWN. WAS NPO FOR SURGERY THIS MORNING, WENT TO SURGERY, RETURNED. SWITCHED TO ACHS BLOOD SUGARS. WOUND DRESSING IS BEING MONITORED. CURRENTLY ON LR. DOES NOT EXPRESS ANY PAIN CURRENTLY. BED IN LOWEST POSITION, CALL LIGHT WITHIN REACH.
--- NOTE | 2024-08-15 17:45 | NUR ---
Pt. is sitting on the side of her bed when she welcomes my visit. Pt. remembers the chapalin from both a previous hospital visit and from the community. Facilitated an update of her recent procedure. With theraputic listening and a calming presence Pt. displayed a spirit of gratitude. Pt. verbalized a desire to be able to home in the morning as there is a memorial service at her [place]. Pt. gave this chapalin permission to contact he audiovisual equipment operator. Prayed for the Pt. Pt. verrbalized gratitude for the spiritual care visit. This rail setter contacted her audiovisual equipment operator by text. It was received with gratitude.
[2024-08-16 04:28] VITALS: BP 126/89
[2024-08-16 05:45] LABS: BASOPHILS PERCENT AUTO 0 % (0-2); EOSINOPHILS PERCENT AUTO 0 % (0-6); Hematocrit 33.3 % (33.0-51.0); Hemoglobin 11.1 g/dL (11.5-16.0); IMMATURE GRAN ABSOLUTE AUTO 0.04 K/mm3 (0.00-0.10); IMMATURE GRAN PERCENT AUTO 1 % (0-1); LYMPHOCYTES ABSOLUTE AUTO 0.76 K/mm3 (0.84-5.20); LYMPHOCYTES PERCENT AUTO 12 % (21-46); MONOCYTES ABSOLUTE AUTO 0.32 K/mm3 (0.16-1.47); MONOCYTES PERCENT AUTO 5 % (4-13); Mean Corpuscular HGB 27.5 pg (26.0-34.0); Mean Corpuscular HGB Conc 33.3 g/dL (31.5-36.5); Mean Corpuscular Volume 83 fL (80-100); Mean Platelet Volume 10.4 fL (9.1-12.4); NEUTROPHILS ABSOLUTE AUTO 5.06 K/mm3 (1.96-9.15); NEUTROPHILS PERCENT AUTO 82 % (41-73); Platelet Count 257 K/mm3 (150-400); RDW Coefficient Variation 14.1 % (11.7-14.2); RDW Standard Deviation 42.1 fL (35.1-46.3); Red Blood Cell Count 4.03 M/mm3 (3.80-5.20); White Blood Cell Count 6.18 K/mm3 (4.00-11.30)
--- NOTE | 2024-08-16 06:06 | NUR ---
Shift Summary PT had drain placed yesterday for R abd abcess. Dressing was saturated around 0200, I cleansed the area and replaced wound dressing. Pt states she has very little pain on her R abd and it doesn't bother her when she is moving around. She is AOx4, independent in the room. Drainage from the wound was red and had very little odor.
[2024-08-16 06:26] LABS: Bun/Creatinine Ratio 20.3 (12.0-20.0); Calcium, Blood 9.5 mg/dL (8.5-10.1); Creatinine, Blood 0.94 mg/dL (0.40-1.00); Potassium, Blood 4.3 mmol/L (3.5-5.5)
[2024-08-16 07:08] VITALS: BP 116/81
[2024-08-16] MEDS ORDERED: Spironolactone 25 MG Tab PO SCH (09:00)
[2024-08-16] MEDS ORDERED: dilTIAZem HCL 240 MG CAP.CD PO ONE (09:50)
[2024-08-16 10:30] VITALS: BP 109/72
[2024-08-16] MEDS ORDERED: CEPH500 PO (12:53)
[2024-08-16] MEDS ORDERED: VISBIOME 112.51 EACH PO (12:53)
--- NOTE | 2024-08-16 13:34 | NUR ---
DISCHARGE SUMMARY JO DISCHARGED THIS SHIFT WITH DAUGHTER TO DRIVE. ABDOMINAL BINDER PROVIDED FOR WOUND CARE, DR LYNN INSTRUCTED NO ADHESIVES TO BE PLACED ON SKIN. MEDS FAXED TO [facility]. DISCHARGE PACKET GIVEN AND REVIEWED, VERBALIZED UNDERSTANDING. IV REMOVED WITHOUT COMPLICATION.
--- NOTE | 2024-08-16 13:40 | NUR ---
PHYSCIAN CONTACT SPOKE WITH DR CHAPMAN REGARDING ANTICOAGULATION MEDS. PATIENT STATES SHE NO LONGER TAKES ASPIRIN AND PLAVIX BUT WARFARIN RATHER, DOC AGREED TO RESTART WARFARIN AND DC THE LATER TWO. PHARMACY CONSULT PLACED FOR WARFARIN. PATIENT INFORMED
[2024-08-16] MEDS ORDERED: Warfarin Sodium 3 MG Tab PO SCH (18:00)
[2024-08-17] MEDS ORDERED: Diltiazem HCl 180 MG Cap.CD PO SCH (09:00)
== END 2024-08-16 13:23 | disposition home health service (06) | DRG 603 ==
LOC: ER 12:57 → MEDS 19:10 → ENPENDDIS 08-16 12:34 → MEDS 08-16 13:23
PROVIDERS: Family Medicine; Nurse Practitioner Acute Care; Surgery; ADMIT Internal Medicine
PROC: 0H97XZZ Drainage of Abdomen Skin, External Approach (ICD-10-PCS; 2024-08-15)
PROC: 0HB7XZX Excision of Abdomen Skin, External Approach, Diagnostic (ICD-10-PCS; principal; 2024-08-15 13:30)
DX: L03.311 Cellulitis of abdominal wall (principal); I50.32 Chronic diastolic (congestive) heart failure; I42.2 Other hypertrophic cardiomyopathy; L02.211 Cutaneous abscess of abdominal wall; I25.10 Atherosclerotic heart disease of native coronary artery without angina pectoris; I48.91 Unspecified atrial fibrillation; I11.0 Hypertensive heart disease with heart failure; J44.9 Chronic obstructive pulmonary disease, unspecified; E78.5 Hyperlipidemia, unspecified; E11.9 Type 2 diabetes mellitus without complications; E66.9 Obesity, unspecified; K21.9 Gastro-esophageal reflux disease without esophagitis; M19.90 Unspecified osteoarthritis, unspecified site; Z95.1 Presence of aortocoronary bypass graft; Z98.890 Other specified postprocedural states; Z90.710 Acquired absence of both cervix and uterus; Z90.49 Acquired absence of other specified parts of digestive tract; Z88.1 Allergy status to other antibiotic agents; Z88.2 Allergy status to sulfonamides; Z88.0 Allergy status to penicillin; Z88.5 Allergy status to narcotic agent; Z88.8 Allergy status to other drugs, medicaments and biological substances; Z79.899 Other long term (current) drug therapy; Z79.02 Long term (current) use of antithrombotics/antiplatelets; Z79.84 Long term (current) use of oral hypoglycemic drugs; Z85.068 Personal history of other malignant neoplasm of small intestine; Z79.82 Long term (current) use of aspirin; Z68.23 Body mass index [BMI] 23.0-23.9, adult; I25.118 Atherosclerotic heart disease of native coronary artery with other forms of angina pectoris; I48.0 Paroxysmal atrial fibrillation
CPT/HCPCS: 36415; 74177; 76857; 80048; 80053; 82947; 85025; 85027; 85610; 87070; 87075; 87077; 87147; 87186; 87205; 94640; 94664; 94760; 96365-59; 99284-25; A9270; J0696; J1885; J2704; J3010; J7030; J7120; Q9967

== ENCOUNTER 2024-10-24 08:30 | Observation (INO) | payer OTHER ==
[~2024-10-24] VITALS: Ht 170.2 cm; Wt 87.0 kg
[~2024-10-24 08:30] MED LIST changes: +DAPAGLIFLOZIN5 MG PO; +MULTIVITAMIN-M1 EACH PO; +SPIR25 PO; +Vitamin B Comple1 EA PO; +WARF4 PO
[2024-10-24 08:55] LABS: BASOPHILS ABSOLUTE AUTO 0.04 K/mm3 (0.00-0.23); BASOPHILS PERCENT AUTO 0 % (0-2); EOSINOPHILS ABSOLUTE AUTO 0.19 K/mm3 (0.00-0.68); EOSINOPHILS PERCENT AUTO 2 % (0-6); Hematocrit 38.6 % (33.0-51.0); Hemoglobin 12.7 g/dL (11.5-16.0); IMMATURE GRAN ABSOLUTE AUTO 0.02 K/mm3 (0.00-0.10); IMMATURE GRAN PERCENT AUTO 0 % (0-1); LYMPHOCYTES ABSOLUTE AUTO 1.65 K/mm3 (0.84-5.20); LYMPHOCYTES PERCENT AUTO 18 % (21-46); MONOCYTES ABSOLUTE AUTO 0.69 K/mm3 (0.16-1.47); MONOCYTES PERCENT AUTO 7 % (4-13); Mean Corpuscular HGB 27.7 pg (26.0-34.0); Mean Corpuscular HGB Conc 32.9 g/dL (31.5-36.5); Mean Corpuscular Volume 84 fL (80-100); Mean Platelet Volume 10.3 fL (9.1-12.4); NEUTROPHILS ABSOLUTE AUTO 6.73 K/mm3 (1.96-9.15); NEUTROPHILS PERCENT AUTO 72 % (41-73); Platelet Count 320 K/mm3 (150-400); RDW Coefficient Variation 14.6 % (11.7-14.2); RDW Standard Deviation 44.5 fL (35.1-46.3); Red Blood Cell Count 4.59 M/mm3 (3.80-5.20); White Blood Cell Count 9.32 K/mm3 (4.00-11.30)
[2024-10-24 09:26] LABS: Albumin, Blood 4.2 g/dL (3.4-5.0); Bilirubin, Total 0.5 mg/dL (0.1-1.0); Bun/Creatinine Ratio 16.1 (12.0-20.0); Calcium, Blood 10.1 mg/dL (8.5-10.1); Creatinine, Blood 0.99 mg/dL (0.40-1.00); Globulin, Blood 4.1 g/dL (2.2-4.0); Potassium, Blood 4.9 mmol/L (3.5-5.5); Total Protein, Blood 8.3 g/dL (6.4-8.2)
[2024-10-24] MEDS ORDERED: POTA10T PO (10:17)
[2024-10-24] MEDS ORDERED: Aspirin 325 MG Tab PO ONE (12:20)
[2024-10-24] MEDS ORDERED: FentaNYL Citrate 50 MCG/ML 2 ML Injection IV ONE (12:20)
[2024-10-24] MEDS ORDERED: FLU VACC TS2024-25(6MOS UP)/PF 45 MCG/0.5 ML SYRINGE IM SCH (16:30)
[2024-10-24] MEDS ORDERED: Cyclobenzaprine HCl 10 MG Tab PO PRN (18:05)
[2024-10-24] MEDS ORDERED: Meclizine HCl 25 MG Tab PO PRN (18:10)
[2024-10-24] MEDS ORDERED: OxyCODONE 5 mg/Acetamin 325 mg TABLET PO PRN (18:10)
[2024-10-24] MEDS ORDERED: Tiotropium Bromide 2.5 MCG/ACT MIST INHAL (10 ACT/4 GM) INH SCH ×2 (18:30)
[2024-10-24 19:31] LABS: International Normalized Ratio 2.34; Prothrombin Time Results 23.5 Sec (9.7-11.5)
[2024-10-24] MEDS ORDERED: Warfarin Sodium 3 MG Tab PO ONE (20:20)
[2024-10-24 20:30] VITALS: BP 159/109
[2024-10-24] MEDS ORDERED: METF500 PO (20:38)
[2024-10-24] MEDS ORDERED: Propranolol HCL 60 MG CAPCR PO SCH (21:00)
[2024-10-24] MEDS ORDERED: ARIPiprazole 2 MG Tablet PO SCH (21:00)
[2024-10-24] MEDS ORDERED: Acetaminophen 500 MG Tab PO SCH (21:00)
[2024-10-24] MEDS ORDERED: TraZODone HCl 100 MG Tab PO SCH (21:00)
[2024-10-24] MEDS ORDERED: Atorvastatin 40 MG Tab PO SCH (21:00)
[2024-10-24] MEDS ORDERED: Gabapentin 300 MG Cap PO SCH (21:00)
[2024-10-24] MEDS ORDERED: Spironolactone 25 MG Tab PO SCH (21:00)
[2024-10-24] MEDS ORDERED: rOPINIRole HCl 2 MG Tab PO SCH (21:00)
--- NOTE | 2024-10-24 22:13 | NUR ---
Pt HR increased to 120-150, afib. Pt asymptomatic, chest discomfort unchanged from time in ED. call out to MD. Pt did state she did not take any of her meds today, med rec has been updated.
[2024-10-24] MEDS ORDERED: Propranolol HCL 20 MG TAB PO ONE (22:20)
[2024-10-24] MEDS ORDERED: Metoprolol Tartrate 1 MG/ML 5 ML VIAL IV PRN (22:25)
[2024-10-25 02:29] VITALS: BP 112/94
--- NOTE | 2024-10-25 04:46 | NUR ---
Pt admitted from ED with NSTEMI/ chest pain. Pain decreased, asymptomatic. VS WNL after administering routine meds. Tele afib with variable RVR rate 90-160, did not sustain in the high range. chronic back pain, medicated with percocet, which she takes at home. Pt NPO for stress test and echo. Pt independent with mobility, and is A&O x4.
[2024-10-25 05:12] LABS: BASOPHILS ABSOLUTE AUTO 0.05 K/mm3 (0.00-0.23); BASOPHILS PERCENT AUTO 1 % (0-2); EOSINOPHILS ABSOLUTE AUTO 0.19 K/mm3 (0.00-0.68); EOSINOPHILS PERCENT AUTO 3 % (0-6); Hematocrit 39.6 % (33.0-51.0); Hemoglobin 12.8 g/dL (11.5-16.0); IMMATURE GRAN ABSOLUTE AUTO 0.03 K/mm3 (0.00-0.10); IMMATURE GRAN PERCENT AUTO 0 % (0-1); LYMPHOCYTES ABSOLUTE AUTO 2.18 K/mm3 (0.84-5.20); LYMPHOCYTES PERCENT AUTO 29 % (21-46); MONOCYTES ABSOLUTE AUTO 0.75 K/mm3 (0.16-1.47); MONOCYTES PERCENT AUTO 10 % (4-13); Mean Corpuscular HGB 27.2 pg (26.0-34.0); Mean Corpuscular HGB Conc 32.3 g/dL (31.5-36.5); Mean Corpuscular Volume 84 fL (80-100); Mean Platelet Volume 10.1 fL (9.1-12.4); NEUTROPHILS ABSOLUTE AUTO 4.46 K/mm3 (1.96-9.15); NEUTROPHILS PERCENT AUTO 58 % (41-73); Platelet Count 280 K/mm3 (150-400); RDW Coefficient Variation 14.6 % (11.7-14.2); RDW Standard Deviation 44.5 fL (35.1-46.3); Red Blood Cell Count 4.71 M/mm3 (3.80-5.20); White Blood Cell Count 7.66 K/mm3 (4.00-11.30)
[2024-10-25 05:39] LABS: Prothrombin Time Results 20.3 Sec (9.7-11.5)
[2024-10-25 06:04] LABS: Albumin, Blood 3.6 g/dL (3.4-5.0); Anion Gap 12 mmol/L (3-11); Blood Urea Nitrogen 13 mg/dL (8-24); Bun/Creatinine Ratio 15.2 (12.0-20.0); CO2, Blood 24 mmol/L (21-32); Calcium, Blood 10.2 mg/dL (8.5-10.1); Chloride, Blood 105 mmol/L (98-108); Creatinine, Blood 0.86 mg/dL (0.40-1.00); Glomerular Filtration Rate 74 (60-); Glucose, Blood 170 mg/dL (70-99); Phosphorus, Blood 3.6 mg/dL (2.5-4.9); Potassium, Blood 4.6 mmol/L (3.5-5.5); Sodium, Blood 136 mmol/L (136-145)
[2024-10-25 07:29] VITALS: BP 134/116
[2024-10-25] MEDS ORDERED: MetFORMIN HCl 500 mg PO SCH (08:00)
[2024-10-25] MEDS ORDERED: Venlafaxine HCl 75 MG CapCR PO SCH (09:00)
[2024-10-25] MEDS ORDERED: Diltiazem HCl 180 MG Cap.CD PO SCH (09:00)
[2024-10-25] MEDS ORDERED: Isosorbide Mononitrate 60 MG TABCR PO SCH ×2 (09:00→21:00)
[2024-10-25] MEDS ORDERED: Losartan Potassium 50 MG Tab PO SCH (09:00)
[2024-10-25 09:58] VITALS: BP 122/80
[2024-10-25] MEDS ORDERED: Caffeine Citrated 60 MG/3 ML Vial ONE (10:47)
[2024-10-25] MEDS ORDERED: Regadenoson 0.4 MG/5 ML SYRINGE ONE (10:47)
[2024-10-25 16:06] VITALS: BP 113/89
--- NOTE | 2024-10-25 16:12 | NUR ---
PT REMAINED NPO TILL STRESS TEST WAS COMPLETE. SEE NOTES FOR DETAILS. PER PT MOVED TO A HEART HEALTHY DIET. NO OTHER CHANGES IN THE OT'S STATUS THUS FAR. PT HAS HAD NO C/O PAIN DURING THE SHIFT. PT HAS NO QUESTIONS OR CONCERNS AT THIS TIME.
[2024-10-25] MEDS ORDERED: Warfarin Sodium 3 MG Tab PO ONE (18:00)
[2024-10-25 19:52] VITALS: BP 127/83
[2024-10-25] MEDS ORDERED: AmLODIPine Besylate 5 MG Tab PO SCH (21:00)
[2024-10-25] MEDS ORDERED: Propranolol HCL 60 MG CAPCR PO SCH (21:00)
[2024-10-25] MEDS ORDERED: Atorvastatin 40 MG Tab PO SCH (21:00)
[2024-10-26 02:31] VITALS: BP 97/70
[2024-10-26 05:15] LABS: BASOPHILS ABSOLUTE AUTO 0.05 K/mm3 (0.00-0.23); BASOPHILS PERCENT AUTO 1 % (0-2); EOSINOPHILS ABSOLUTE AUTO 0.22 K/mm3 (0.00-0.68); EOSINOPHILS PERCENT AUTO 3 % (0-6); Hematocrit 36.3 % (33.0-51.0); Hemoglobin 11.8 g/dL (11.5-16.0); IMMATURE GRAN ABSOLUTE AUTO 0.03 K/mm3 (0.00-0.10); IMMATURE GRAN PERCENT AUTO 0 % (0-1); LYMPHOCYTES ABSOLUTE AUTO 2.86 K/mm3 (0.84-5.20); LYMPHOCYTES PERCENT AUTO 34 % (21-46); MONOCYTES PERCENT AUTO 9 % (4-13); Mean Corpuscular HGB 27.4 pg (26.0-34.0); Mean Corpuscular HGB Conc 32.5 g/dL (31.5-36.5); Mean Corpuscular Volume 84 fL (80-100); Mean Platelet Volume 10.5 fL (9.1-12.4); NEUTROPHILS ABSOLUTE AUTO 4.55 K/mm3 (1.96-9.15); NEUTROPHILS PERCENT AUTO 53 % (41-73); Platelet Count 284 K/mm3 (150-400); RDW Coefficient Variation 14.7 % (11.7-14.2); RDW Standard Deviation 44.8 fL (35.1-46.3); White Blood Cell Count 8.51 K/mm3 (4.00-11.30)
[2024-10-26 05:32] LABS: International Normalized Ratio 1.91; Prothrombin Time Results 19.5 Sec (9.7-11.5)
[2024-10-26 05:41] LABS: Albumin, Blood 3.4 g/dL (3.4-5.0); Anion Gap 13 mmol/L (3-11); Blood Urea Nitrogen 18 mg/dL (8-24); Bun/Creatinine Ratio 17.1 (12.0-20.0); CO2, Blood 23 mmol/L (21-32); Calcium, Blood 9.4 mg/dL (8.5-10.1); Chloride, Blood 102 mmol/L (98-108); Creatinine, Blood 1.05 mg/dL (0.40-1.00); Glomerular Filtration Rate 58 (60-); Glucose, Blood 154 mg/dL (70-99); Magnesium, Blood 1.7 mg/dL (1.6-2.4); Phosphorus, Blood 3.6 mg/dL (2.5-4.9); Potassium, Blood 4.4 mmol/L (3.5-5.5); Sodium, Blood 134 mmol/L (136-145)
[2024-10-26] MEDS ORDERED: Pantoprazole Sodium 20 MG Tab PO SCH (06:00)
--- NOTE | 2024-10-26 06:00 | NUR ---
Pt did well this shift, VS WNL, tele afib with more stable rate of 90-110. denied chest pain, UOP WNL, Pt independent, Pt with neck and shoulder pain, percocet administered. no other issues.
[2024-10-26 07:33] VITALS: BP 103/79
[2024-10-26] MEDS ORDERED: Isosorbide Mononitrate 60 MG TABCR PO SCH (09:00)
[2024-10-26] MEDS ORDERED: Aspirin 81 MG Chew PO SCH (09:00)
[2024-10-26] MEDS ORDERED: ASPI81CH PO (12:12)
[2024-10-26] MEDS ORDERED: Amlodipine Bes2.5 MG PO (12:12)
[2024-10-26] MEDS ORDERED: PANT20 PO (12:13)
--- NOTE | 2024-10-26 12:49 | NUR ---
PT DISCHARGED FROM THE HOSPITAL WITH INSTRUCTIONS. PT AND LOVED ONE AT BEDSIDE HAD NO QUESTIONS OR CONCERNS. ALL PIV'S REMOVED. PT WHEELED OUT BY SOHAIL
[2024-10-26] MEDS ORDERED: Warfarin Sodium 3 MG Tab PO ONE (18:00)
== END 2024-10-26 12:52 | disposition home or self-care (01) ==
LOC: ER 08:30 → MEDS 08:31 → ERHOLD 14:56 → ER 14:56 → MEDS 14:56 → ERHOLD 20:24 → MEDS 20:24
PROVIDERS: Student in an Organized Health Care Education/Training Program; ADMIT Family Medicine
DX: R07.89 Other chest pain (principal); I25.10 Atherosclerotic heart disease of native coronary artery without angina pectoris; I25.2 Old myocardial infarction; I70.0 Atherosclerosis of aorta; R94.39 Abnormal result of other cardiovascular function study; I48.19 Other persistent atrial fibrillation; E11.9 Type 2 diabetes mellitus without complications; I11.0 Hypertensive heart disease with heart failure; I50.22 Chronic systolic (congestive) heart failure; F41.9 Anxiety disorder, unspecified; E78.5 Hyperlipidemia, unspecified; G25.81 Restless legs syndrome; E66.01 Morbid (severe) obesity due to excess calories; Z68.29 Body mass index [BMI] 29.0-29.9, adult; Z95.5 Presence of coronary angioplasty implant and graft; Z87.891 Personal history of nicotine dependence; Z79.84 Long term (current) use of oral hypoglycemic drugs; Z79.01 Long term (current) use of anticoagulants; Z79.899 Other long term (current) drug therapy; Z88.0 Allergy status to penicillin; Z88.1 Allergy status to other antibiotic agents; Z88.2 Allergy status to sulfonamides; Z88.5 Allergy status to narcotic agent; Z88.8 Allergy status to other drugs, medicaments and biological substances; Z90.710 Acquired absence of both cervix and uterus
CPT/HCPCS: 36415; 71046; 71275; 74174; 78452; 80053; 80069; 83690; 83735; 84484; 85025; 85610; 93005; 93010; 93017; 93306; 94640; 94664; 94760; 96374-59; 99285-25; A9270; A9500; G0378; J0706; J2470; J2785; J3010; Q9967

== ENCOUNTER 2025-01-11 09:34 | Observation (INO) | payer OTHER ==
[~2025-01-11] VITALS: Ht 170.2 cm; Wt 85.3 kg
[~2025-01-11 09:34] MED LIST changes: +ASPI81CH PO; +Amlodipine Bes2.5 MG PO; +PANT20 PO; +POTA10T PO
[2025-01-11 10:32] LABS: BASOPHILS ABSOLUTE AUTO 0.03 K/mm3 (0.00-0.23); BASOPHILS PERCENT AUTO 0 % (0-2); EOSINOPHILS ABSOLUTE AUTO 0.23 K/mm3 (0.00-0.68); EOSINOPHILS PERCENT AUTO 3 % (0-6); Hematocrit 38.1 % (33.0-51.0); Hemoglobin 11.9 g/dL (11.5-16.0); IMMATURE GRAN ABSOLUTE AUTO 0.02 K/mm3 (0.00-0.10); IMMATURE GRAN PERCENT AUTO 0 % (0-1); LYMPHOCYTES ABSOLUTE AUTO 2.17 K/mm3 (0.84-5.20); LYMPHOCYTES PERCENT AUTO 30 % (21-46); MONOCYTES ABSOLUTE AUTO 0.62 K/mm3 (0.16-1.47); MONOCYTES PERCENT AUTO 9 % (4-13); Mean Corpuscular HGB 26.3 pg (26.0-34.0); Mean Corpuscular HGB Conc 31.2 g/dL (31.5-36.5); Mean Corpuscular Volume 84 fL (80-100); NEUTROPHILS ABSOLUTE AUTO 4.08 K/mm3 (1.96-9.15); NEUTROPHILS PERCENT AUTO 57 % (41-73); Platelet Count 288 K/mm3 (150-400); RDW Standard Deviation 43.2 fL (35.1-46.3); Red Blood Cell Count 4.52 M/mm3 (3.80-5.20); White Blood Cell Count 7.15 K/mm3 (4.00-11.30)
[2025-01-11 10:53] LABS: Albumin, Blood 3.7 g/dL (3.4-5.0); Albumin/Globulin Ratio 1.1 (0.8-1.8); Bilirubin, Total 0.4 mg/dL (0.1-1.0); Bun/Creatinine Ratio 13.5 (12.0-20.0); Creatinine, Blood 0.96 mg/dL (0.40-1.00); Globulin, Blood 3.5 g/dL (2.2-4.0); Potassium, Blood 4.9 mmol/L (3.5-5.5); Total Protein, Blood 7.2 g/dL (6.4-8.2)
[2025-01-11] MEDS ORDERED: Clindamycin 600mg in D5W 50 ML IV ONE (12:30)
[2025-01-11] MEDS ORDERED: FLU VACC TS2024-25(6MOS UP)/PF 45 MCG/0.5 ML SYRINGE IM SCH (16:05)
[2025-01-11 16:17] LABS: International Normalized Ratio 2.46; Prothrombin Time Results 24.6 Sec (9.7-11.5)
[2025-01-11] MEDS ORDERED: Phytonadione 5 MG Tab PO ONE (16:40)
[2025-01-11] MEDS ORDERED: OxyCODONE 5 mg/Acetamin 325 mg TABLET PO PRN (16:50)
[2025-01-11] MEDS ORDERED: Cyclobenzaprine HCl 10 MG Tab PO PRN (17:00)
[2025-01-11] MEDS ORDERED: Doxycycline Hyclate 100 MG in Dextrose 5% 250 ML IV SCH (17:00)
[2025-01-11] MEDS ORDERED: CeFAZolin Sodium 1,000 MG in NS 50 ML IV SCH (17:00)
[2025-01-11] MEDS ORDERED: Tiotropium Bromide 2.5 MCG/ACT MIST INHAL (10 ACT/4 GM) INH SCH (17:20)
[2025-01-11 17:52] VITALS: BP 167/113
[2025-01-11] MEDS ORDERED: Bumetanide 1 MG Tab PO SCH (18:00)
--- NOTE | 2025-01-11 19:03 | NUR ---
PT IS A&OX4 BLOOD PRESSURE ELEVATED BUT PT REPORTED THAT IS NORMAL, AND ON RA. PT TAKES MEDS WHOLE WITH WATER. AMBULATES INDEPENDENTLY BUT THIS NURSE GAVE INSTRUCTION WITH HOOKED UP TO PIV MEDS/FLUODS TO CALL FOR ASSISTANCE. PT EDUCATED WITH THE CALL LIGHTS AND THE FLOW. PT HAS NO C/O PAIN, SOB OR CHEST PAIN
[2025-01-11 19:23] VITALS: BP 139/102
[2025-01-11] MEDS ORDERED: rOPINIRole HCl 2 MG Tab PO SCH (21:00)
[2025-01-11] MEDS ORDERED: ARIPiprazole 2 MG Tablet PO SCH (21:00)
[2025-01-11] MEDS ORDERED: TraZODone HCl 100 MG Tab PO SCH (21:00)
[2025-01-11] MEDS ORDERED: AmLODIPine Besylate 5 MG Tab PO SCH (21:00)
[2025-01-11] MEDS ORDERED: Spironolactone 25 MG Tab PO SCH (21:00)
[2025-01-11] MEDS ORDERED: Melatonin 3 MG Tab PO SCH (21:00)
[2025-01-11] MEDS ORDERED: Gabapentin 300 MG Cap PO SCH (21:00)
[2025-01-11] MEDS ORDERED: Atorvastatin 40 MG Tab PO SCH (21:00)
[2025-01-11] MEDS ORDERED: Lactobacil 2-S.Thermo-Bifido 1 1 Cap PO SCH (21:00)
[2025-01-11] MEDS ORDERED: Propranolol HCL 60 MG CAPCR PO SCH (21:00)
[2025-01-12] VITALS (18 sets, daily range): BP systolic 115–162; BP diastolic 85–111
--- NOTE | 2025-01-12 04:39 | NUR ---
SHIFT SUMMARY PT REMAINS A&OX4. VSS ON RA. PT C/O MODERATE PAIN LOCATED AT ABDOMINAL WOUND. PRN PERCOCET GIVEN WITH GOOD RELIEF. ABDOMINAL WOUND REMAINS C/D/I. PT AMBULATING IND IN ROOM. MADE NPO @ 0000 FOR I&D PROCEDURE. NO FURTHER QUESTIONS OR CONCERNS AT THIS TIME. CALL PETER WITHIN REACH. WILL CONTINUE WITH PLAN OF CARE.
[2025-01-12 05:55] LABS: BASOPHILS ABSOLUTE AUTO 0.03 K/mm3 (0.00-0.23); BASOPHILS PERCENT AUTO 0 % (0-2); EOSINOPHILS ABSOLUTE AUTO 0.24 K/mm3 (0.00-0.68); EOSINOPHILS PERCENT AUTO 3 % (0-6); Hematocrit 42.6 % (33.0-51.0); Hemoglobin 13.6 g/dL (11.5-16.0); IMMATURE GRAN ABSOLUTE AUTO 0.06 K/mm3 (0.00-0.10); IMMATURE GRAN PERCENT AUTO 1 % (0-1); LYMPHOCYTES ABSOLUTE AUTO 1.88 K/mm3 (0.84-5.20); LYMPHOCYTES PERCENT AUTO 26 % (21-46); MONOCYTES ABSOLUTE AUTO 0.68 K/mm3 (0.16-1.47); MONOCYTES PERCENT AUTO 10 % (4-13); Mean Corpuscular HGB 26.4 pg (26.0-34.0); Mean Corpuscular HGB Conc 31.9 g/dL (31.5-36.5); Mean Corpuscular Volume 83 fL (80-100); Mean Platelet Volume 10.5 fL (9.1-12.4); NEUTROPHILS ABSOLUTE AUTO 4.23 K/mm3 (1.96-9.15); NEUTROPHILS PERCENT AUTO 59 % (41-73); Platelet Count 293 K/mm3 (150-400); RDW Coefficient Variation 14.2 % (11.7-14.2); RDW Standard Deviation 41.9 fL (35.1-46.3); Red Blood Cell Count 5.15 M/mm3 (3.80-5.20); White Blood Cell Count 7.12 K/mm3 (4.00-11.30)
[2025-01-12] MEDS ORDERED: Pantoprazole Sodium 20 MG Tab PO SCH (06:00)
[2025-01-12 06:09] LABS: International Normalized Ratio 1.6; Prothrombin Time Results 16.5 Sec (9.7-11.5)
[2025-01-12 06:25] LABS: Bun/Creatinine Ratio 14.2 (12.0-20.0); Calcium, Blood 9.5 mg/dL (8.5-10.1); Creatinine, Blood 0.99 mg/dL (0.40-1.00); Potassium, Blood 4.6 mmol/L (3.5-5.5)
--- NOTE | 2025-01-12 06:38 | NUR ---
ASSUMPTION OF CARE PT TRANSFERRED FROM MEDICAL FLOOR VIA WHEELCHAIR. ARRIVED A/OX4, ON RA, NO TELE. DENIES N/T T/O. REPORTS RLQ ABD PAIN. MEDICATED PER EMAR. PT INDEP IN ROOM, BED IN LOW, CALL LIGHT IN REACH.
[2025-01-12] MEDS ORDERED: Multivitamins 1 Tab PO SCH (09:00)
[2025-01-12] MEDS ORDERED: Aspirin 81 MG Chew PO SCH (09:00)
[2025-01-12] MEDS ORDERED: Ascorbic Acid 500 MG Tab PO SCH (09:00)
[2025-01-12] MEDS ORDERED: Isosorbide Mononitrate 60 MG TABCR PO SCH (09:00)
[2025-01-12] MEDS ORDERED: Venlafaxine HCl 75 MG CapCR PO SCH (09:00)
[2025-01-12] MEDS ORDERED: Lactated Ringer's 1,000 ML IV SCH (11:05)
--- NOTE | 2025-01-12 11:35 | NUR ---
PATIENT TRANSFERRED OFF UNIT FOR SCHEDULED PROCEDURE. PATIENT TO RECEIVE SCHEDULED PROPRANOLOL AND IV CEFAZOLIN BY DAY SURGERY RN.
[2025-01-12] MEDS ORDERED: CeFAZolin Sodium 1000 mg Vial ONE (11:53)
[2025-01-12] MEDS ORDERED: Lidocaine HCl 1% 5 ML SYR INJ ONE (11:55)
[2025-01-12] MEDS ORDERED: Ondansetron HCl 2 MG / ML 2ML Vial IV PRN (12:00)
[2025-01-12] MEDS ORDERED: FentaNYL Citrate 50 MCG/ML 2 ML Injection IV PRN ×3 (12:00)
--- NOTE | 2025-01-12 12:09 | NUR ---
1200- RESUMED CARE OF PATIENT FROM RACHEL VELEZ RN.
[2025-01-12] MEDS ORDERED: Bupivacaine 0.5% HCl 5 MG/ML 30MLVIAL ONE (12:23)
[2025-01-12] MEDS ORDERED: propofoL 20 ML IV ONE (12:49)
[2025-01-12] MEDS ORDERED: FentaNYL Citrate 50 MCG/ML 2 ML Injection ONE (12:50)
[2025-01-12] MEDS ORDERED: Ondansetron HCl 2 MG / ML 2ML Vial ONE (13:06)
[2025-01-12] MEDS ORDERED: Rocuronium Bromide 10 MG/ML 5ML Injection IV ONE (13:06)
[2025-01-12] MEDS ORDERED: Dexamethasone Sod Phos 10 MG/ML 1ML VIAL ONE (13:06)
--- NOTE | 2025-01-12 13:19 | NUR ---
01/12/25 1319 Sade Mckinney NOTED: SMALL OPEN AREA TO PTS RMQ OF ABDOMEN, DR HUNT AWARE
[2025-01-12] MEDS ORDERED: Glycopyrrolate 0.2 MG/ML 5ML VIAL ONE (13:26)
[2025-01-12] MEDS ORDERED: Neostigmine Methylsulfate 5MG/5ML SYR ONE (13:26)
[2025-01-12] MEDS ORDERED: Ketorolac Tromethamine 30mg Vial ONE (13:27)
--- NOTE | 2025-01-12 14:15 | NUR ---
RETURN TO UNIT AFTER RECEIVING REPORT FROM INSULATION CUPOLA CHARGER, PATIENT TRANSFERRED BACK TO ROOM AT APPROX 1410. PATIENT ALERT - TRANSFERRED FROM [facility] TO BED VIA SLIDER SHEET. S/P I/D - MALIA DRAIN AND ABD PAD DRESSING IN PLACE RLQ, C/D/I. VSS. DENIES PAIN. DENIES N/V. IVF INFUSING TO GRAVITY. CALL LIGHT IN REACH. UPDATE PROVIDED TO DAUGHTER, RUBIN VIA TELEPHONE
[2025-01-12] MEDS ORDERED: Insulin Human Lispro 100 Units/ML 3ML Syringe SC SCH (17:15)
--- NOTE | 2025-01-12 17:58 | NUR ---
SHIFT SUMMARY NO ACUTE CHANGES SINCE PREVIOUS NOTE. PATIENT ALERT AND ORIENTED X4. COMMUNICATING NEEDS EFFECTIVELY. S/P I/D RLQ - MALIA DRAIN WITH ABD DRESSING C/D/I. DENIES PAIN. TOLERATING ADVANCED DIET. VOIDING. HTN NOTED - SBP 150s, DBP 90s-110s. MORNING BP MEDICATIONS HELD FOR PROCEDURE. PATIENT TO RECEIVE SCHEDULED DIURETICS AND BP MEDICATIONS THIS EVENING. PATIENT ASYMPTOMATIC. DENIES CHEST PAIN, PRESSURE. ON ROOM AIR, SATs >90%. RR EVEN, UNLABORED. EVENING CBG 193 - MD CASILLAS CONTACTED. RECEIVED ORDER FOR LOW SLIDING SCALE HUMALOG. CALL LIGHT IN REACH.
[2025-01-12] MEDS ORDERED: NS 250 ML IV PRN (23:10)
--- NOTE | 2025-01-13 05:10 | NUR ---
SHIFT SUMMARY POD 1 S/P ABD I & D. ABD DRESSING CDI, NO DRAINAGE NOTED. PAIN MANAGED PER EMAR, MEDICATED X 1. ABX INFUSED PER ORDERS. IND IN ROOM. IS VOIDING. GUY PO INTAKE. PT RESTING IN BED WITH CALL LIGHT IN REACH. WILL GIVE REPORT TO ONCOMING RN.
[2025-01-13 05:33] VITALS: BP 130/89
[2025-01-13 07:28] VITALS: BP 140/78
[2025-01-13 07:52] LABS: BASOPHILS ABSOLUTE AUTO 0.03 K/mm3 (0.00-0.23); BASOPHILS PERCENT AUTO 0 % (0-2); EOSINOPHILS ABSOLUTE AUTO 0.04 K/mm3 (0.00-0.68); EOSINOPHILS PERCENT AUTO 0 % (0-6); Hematocrit 34.9 % (33.0-51.0); Hemoglobin 11.5 g/dL (11.5-16.0); IMMATURE GRAN ABSOLUTE AUTO 0.05 K/mm3 (0.00-0.10); IMMATURE GRAN PERCENT AUTO 1 % (0-1); LYMPHOCYTES PERCENT AUTO 13 % (21-46); MONOCYTES ABSOLUTE AUTO 0.84 K/mm3 (0.16-1.47); MONOCYTES PERCENT AUTO 8 % (4-13); Mean Corpuscular HGB 26.6 pg (26.0-34.0); Mean Corpuscular Volume 81 fL (80-100); Mean Platelet Volume 10.1 fL (9.1-12.4); NEUTROPHILS ABSOLUTE AUTO 8.17 K/mm3 (1.96-9.15); NEUTROPHILS PERCENT AUTO 78 % (41-73); Platelet Count 268 K/mm3 (150-400); RDW Coefficient Variation 13.6 % (11.7-14.2); RDW Standard Deviation 39.8 fL (35.1-46.3); Red Blood Cell Count 4.33 M/mm3 (3.80-5.20); White Blood Cell Count 10.43 K/mm3 (4.00-11.30)
[2025-01-13 08:29] LABS: Bun/Creatinine Ratio 16.9 (12.0-20.0); Calcium, Blood 8.6 mg/dL (8.5-10.1); Creatinine, Blood 0.83 mg/dL (0.40-1.00)
[2025-01-13] MEDS ORDERED: VISBIOME 112.51 EACH PO (08:44)
[2025-01-13] MEDS ORDERED: Cefadroxil500 MG PO (08:44)
[2025-01-13] MEDS ORDERED: DOXY100 PO (08:45)
--- NOTE | 2025-01-13 11:00 | NUR ---
DISCHARGE NOTE THIS RN ASSUMED CARE AT APPROX 0715. PATIENT ALERT AND ORIENTED X4. COMMUNICATES NEEDS EFFECTIVELY. VSS. INDEPENDENT IN ROOM. POD 1 I/D OF ABD WALL ABSCESS W/ MALIA DRAIN PLACEMENT RLQ. TOLERATING ADVANCED DIET. REPORTS FLATULENCE. VOIDING. ABD PAIN MANAGED WITH PRESCRIBED THERAPY. MD HUNT AT BEDSIDE THIS MORNING - DRESSING CHANGED C/D/I. CLEARED TO DC HOME. DC HOME ORDERED BY HOSPITALIST. IV REMOVED. WRITTEN AND VERBAL DC EDUCATION PROVIDED - PATIENT STATES UNDERSTANDING. SUPPLIES PROVIDED FOR DRESSING CHANGES AT HOME. PATIENT TRANSFERRED TO PERSONAL VEHICLE VIA AT APPROX 1100. PERSONAL BELONGINGS WITH PATIENT.
== END 2025-01-13 11:05 | disposition home or self-care (01) ==
LOC: ER 09:34 → MEDS 09:35 → ERHOLD 09:35 → SURS 09:35 → MEDS 17:44 → SURS 01-12 06:23
PROVIDERS: Internal Medicine; Physician Assistant; Student in an Organized Health Care Education/Training Program; Surgery; ADMIT Family Medicine
PROC: 0W9F0ZZ Drainage of Abdominal Wall, Open Approach (ICD-10-PCS; principal; 2025-01-12 11:30)
DX: L02.211 Cutaneous abscess of abdominal wall (principal); M79.5 Residual foreign body in soft tissue; B95.62 Methicillin resistant Staphylococcus aureus infection as the cause of diseases classified elsewhere; I25.10 Atherosclerotic heart disease of native coronary artery without angina pectoris; I25.2 Old myocardial infarction; I11.0 Hypertensive heart disease with heart failure; I50.22 Chronic systolic (congestive) heart failure; I48.91 Unspecified atrial fibrillation; G25.81 Restless legs syndrome; J44.9 Chronic obstructive pulmonary disease, unspecified; K21.9 Gastro-esophageal reflux disease without esophagitis; E11.9 Type 2 diabetes mellitus without complications; Z87.891 Personal history of nicotine dependence; Z79.01 Long term (current) use of anticoagulants; Z79.82 Long term (current) use of aspirin; Z79.84 Long term (current) use of oral hypoglycemic drugs; Z79.899 Other long term (current) drug therapy; Z88.0 Allergy status to penicillin; Z88.2 Allergy status to sulfonamides; Z88.5 Allergy status to narcotic agent; Z88.1 Allergy status to other antibiotic agents; Z88.8 Allergy status to other drugs, medicaments and biological substances; Z95.5 Presence of coronary angioplasty implant and graft; Z90.49 Acquired absence of other specified parts of digestive tract; Z90.710 Acquired absence of both cervix and uterus
CPT/HCPCS: 36415; 74177; 76705; 80048; 80053; 82947; 83605; 85025; 85610; 85730; 87070; 87075; 87077; 87147; 87186; 87205; 93005; 93010; 96365-59; 96375; 96376; 99284-25; A9270; C1751; G0378; J0690; J1100; J1885; J2405; J2470; J2704; J2710; J3010; J7050; J7060; J7120; Q9967

== ENCOUNTER 2025-02-20 17:12 | Emergency (ER) | payer OTHER ==
[~2025-02-20] VITALS: Ht 170.2 cm; Wt 83.9 kg
[~2025-02-20 17:12] MED LIST changes: +Cefadroxil500 MG PO; +DOXY100 PO
[2025-02-20 17:23] VITALS: BP 144/86
[2025-02-20 18:24] LABS: BASOPHILS ABSOLUTE AUTO 0.04 K/mm3 (0.00-0.23); BASOPHILS PERCENT AUTO 0 % (0-2); EOSINOPHILS ABSOLUTE AUTO 0.16 K/mm3 (0.00-0.68); EOSINOPHILS PERCENT AUTO 2 % (0-6); Hematocrit 38.2 % (33.0-51.0); Hemoglobin 12.2 g/dL (11.5-16.0); IMMATURE GRAN ABSOLUTE AUTO 0.02 K/mm3 (0.00-0.10); IMMATURE GRAN PERCENT AUTO 0 % (0-1); LYMPHOCYTES ABSOLUTE AUTO 2.46 K/mm3 (0.84-5.20); LYMPHOCYTES PERCENT AUTO 27 % (21-46); MONOCYTES ABSOLUTE AUTO 0.78 K/mm3 (0.16-1.47); MONOCYTES PERCENT AUTO 9 % (4-13); Mean Corpuscular HGB 26.2 pg (26.0-34.0); Mean Corpuscular HGB Conc 31.9 g/dL (31.5-36.5); Mean Corpuscular Volume 82 fL (80-100); Mean Platelet Volume 10.3 fL (9.1-12.4); NEUTROPHILS ABSOLUTE AUTO 5.51 K/mm3 (1.96-9.15); NEUTROPHILS PERCENT AUTO 62 % (41-73); Platelet Count 278 K/mm3 (150-400); RDW Coefficient Variation 14.5 % (11.7-14.2); RDW Standard Deviation 42.7 fL (35.1-46.3); Red Blood Cell Count 4.66 M/mm3 (3.80-5.20); White Blood Cell Count 8.97 K/mm3 (4.00-11.30)
[2025-02-20 19:00] LABS: Albumin, Blood 3.9 g/dL (3.4-5.0); Albumin/Globulin Ratio 1.1 (0.8-1.8); Bilirubin, Total 0.4 mg/dL (0.1-1.0); Bun/Creatinine Ratio 17.8 (12.0-20.0); Creatinine, Blood 1.01 mg/dL (0.40-1.00); Globulin, Blood 3.5 g/dL (2.2-4.0); Potassium, Blood 4.2 mmol/L (3.5-5.5); Total Protein, Blood 7.4 g/dL (6.4-8.2)
== END 2025-02-20 21:12 | disposition left against medical advice (07) ==
LOC: ER 17:12
PROVIDERS: Student in an Organized Health Care Education/Training Program
DX: R07.9 Chest pain, unspecified (principal); R51.9 Headache, unspecified; I10 Essential (primary) hypertension; Z53.29 Procedure and treatment not carried out because of patient's decision for other reasons
CPT/HCPCS: 71046; 80053; 83690; 84484; 85025; 93005; 93010; 99282-25